=== PATIENT | female | born 1970 | race Caucasian/White ===

== ENCOUNTER 2022-01-17 09:44 | Outpatient (REF) | payer OTHER, SELFPAY | END 2022-01-17 09:45 | disposition home or self-care (01) | LOC: HO.WFDLDS 09:44 | PROVIDERS: Visit Provider Hospitalist | DX: E03.9 Hypothyroidism, unspecified (principal) | CPT/HCPCS: 36415; 84443 ==

== ENCOUNTER 2022-06-19 07:18 | Outpatient (REF) | payer OTHER, SELFPAY ==
[2022-06-19 12:26] LABS: TSH reflex Free T4 2.02 uIU/mL (0.32-4.0)
== END 2022-06-19 07:19 | disposition home or self-care (01) ==
LOC: HO.WFDLDS 07:18
PROVIDERS: Visit Provider Hospitalist
DX: E03.9 Hypothyroidism, unspecified (principal)
CPT/HCPCS: 36415; 84443

== ENCOUNTER 2023-03-25 09:08 | Outpatient (AMB) | payer OTHER, SELFPAY ==
[2023-03-25 09:15] VITALS: BP 128/84; PULSE 78; RESP 13; TEMP 36.3; O2SAT 99; BMI 33.7
--- NOTE | 2023-03-25 09:15 | MHC.PC.OV ---
Vital Signs 03/25/23 09:15 Height 5 ft 2.5 in Weight 187 lb 2 oz BMI 33.7 BP 128/84 Blood Pressure Location Rt brachial Position Sitting Respiration 13 Pulse 78 Pulse Source Pulse Oximeter Temp 97.3 F Temp Source Temporal Artery Scan Pulse Oximetry (%) 99 Oxygen Delivery Method Room Air Intake Visit Reasons: trans care from [facility] Intake Note: Patient would like a script sent in for sumatriptan. Director Food And Beverage Required: No Accompanied by: Self / Same As Patient Allergies No Known Allergies Allergy (Verified 03/25/23 09:32) Medication List - Last Reconciled 03/25/23 by Tone Carrillo CNP amlodipine 2.5 mg PO DAILY 90 days levothyroxine 112 mcg PO DAILY losartan-hydrochlorothiazide 100-25 mg 1 tab PO DAILY 90 days sumatriptan succinate 100 mg PO Q2-4H PRN Tobacco use date assessed: 03/25/23 Dental Screening Dental Screen Date: 03/25/23 Did you have a dental visit in the last 12 months?: Yes Did you have a dental problem in the last 6 months where you did not have access to dental care?: No Was dental information given to patient?: Patient has dentist HPI HPI Comments History of Present Illness Details 52-year-old female presents for transfer of care Her former PCP is CHRIS who is no longer with the practice. Her last office visit was in June 2022. She has not had routine blood work done in a while She has history of hypertension, hypothyroidism, and migraines She admits to taking her medications as prescribed without adverse reactions She monitors her BP daily in the morning and averages between 104-105/75-77 She notes that she exercise routinely and makes healthy dietary choices; she is a vegetarian. She had weight gain related to menopause discussion with her pad machine offbearer and may consider HRT She notes she has not had a colonoscopy She states that her last pap smear test and mammogram was at [facility] 2 months: both normal She notes she was vaccinate for shingles She is up-to-date on the flu and covid-19 vaccines [facility] Medical History (Updated 03/25/23 @ 09:55 by Tone Carrillo CNP) delivery delivered Ectopic Hypothyroidism HTN, goal to be determined Surgical History No pertinent past surgical history Social History Housing: House Patient Tobacco Use Status: Never used Tobacco e-Cigarette/Vaping Use: Never Used service: No Current occupational status: employed 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 1. Little interest or pleasure in doing things: not at all 2. Feeling down, depressed, or hopeless: not at all 3. Trouble falling or staying asleep, or sleeping too much: several days 4. Feeling tired or having little energy: several days 5. Poor appetite or overeating: not at all 6. Feeling bad about yourself - or that you are a failure or have let yourself or your family down: not at all 7. Trouble concentrating on things, such as reading the newspaper or watching television: not at all 8. Moving or speaking so slowly that other people could have noticed. Or the opposite - being so fidgety or restless that you have been moving around a lot more than usual: not at all 9. Thoughts that you would be better off or of hurting yourself in some way: not at all Total score: 2 Depression Screening Interpretation: Negative Depression Screening Done: Yes 89065 - PHQ-9 Billing: Yes Source: Developed by Drs. Lamberto Kelly, Ramya Jaimes, Law Coleman and colleagues, with an educational salvador from [employer]. Thrive Questionnaire Date Thrive assessed: 03/25/23 I am a: Patient What is your living situation today?: I have a steady place to live Within the past 12 months, did the food you bought not last and you didn't have the money to get more?: Never true Within the past 12 months, did you worry whether your food would run out before you got money to buy more?: Never true Do you have trouble paying for medicines?: No Do you have trouble getting transportation to medical appointments?: No Do you have trouble paying your heating and electricity bill?: No Do you have trouble taking care of your child, family member or friend?: No Do you have trouble with day-to-day activities such as bathing, preparing meals, shopping, managing finances, etc.?: No Are you currently unemployed and looking for a job?: No Are you interested in more education?: No Please select the resources that you would like help with: None Currently or been in a relationship where the following occur: no concerns reported AUDIT C Alcohol Use Questionnaire (AUDIT-C) 1. How often do you have a drink containing alcohol?: 2-4 times a month 2. How many drinks containing alcohol do you have on a typical day when you are drinking?: 1 or 2 3. How often do you have six or more drinks on one occasion?: Never Total Score: 2 TAMMY-7 AMB Questionnaire TAMMY-7 Date TAMMY - 7 assessed: 03/25/23 Feeling nervous, anxious, or on edge: 1 = Several days Not being able to stop or control worryin = Several days Worrying too much about different things: 1 = Several days Trouble relaxin = Several days Being so restless that it is hard to sit still: 0 = Not at all Becoming easily annoyed or irritable: 0 = Not at all Feeling afraid as if something awful might happen: 1 = Several days Total TAMMY-7 score (0-4 normal; 5-9 mild; 10-14 moderate; 15-21 severe): 5 Source: Developed by Drs. Lamberto Kelly, Ramya Jaimes, Law Coleman and colleagues, with an educational salvador from [employer]. TAMMY-7 Assessment Billing TAMMY-7 Assessment Tool: TAMMY-7 Assessment 99514 Review of Systems Const Details: Denies chills, Denies fatigue, Denies fever(s), Denies headache(s) and Denies weakness HEENT Denies change in vision, Denies dizziness, Denies headache(s), Denies hearing loss, Denies nasal congestion, Denies sinus pain, Denies sinus pressure and Denies sore throat Card Denies chest pain, Denies lightheadedness, Denies dyspnea and Denies other (palpitations) Resp Denies cough, Denies dyspnea and Denies wheezing GI Denies abdominal pain, Denies melena, Denies hematochezia, Denies change in bowel habits, Denies dyspepsia and Denies nausea Denies hematuria and Denies dysuria Musc Denies abnormal gait, Denies myalgias, Denies arthralgias, Denies numbness and Denies tingling Skin/Breast Denies rash, Denies unusual bruising and Denies wounds Neuro Denies abnormal gait, Denies dizziness, Denies headache(s), Denies memory loss, Denies numbness, Denies Sensory deficit (Neuro), Denies tingling and Denies weakness Psych Denies anxiety, Denies depression and Denies memory loss Endo Denies cold intolerance, Denies fatigue, Denies heat intolerance, Denies polydipsia and Denies polyuria Jesse/Lymph Denies easy bleeding and Denies easy bruising Aller/Immun Denies wheezing Physical exam (Primary Care) Vital Signs: Last Vital Signs Temp 97.3 F 03/25/23 09:15 Pulse 78 03/25/23 09:15 Resp 13 03/25/23 09:15 BP 128/84 03/25/23 09:15 Pulse Ox 99 03/25/23 09:15 Oxygen Delivery Method Room Air 03/25/23 09:15 BMI result Body Mass Index 33.7 Tobacco/Smoking Status: Tobacco use Status Tobacco use date assessed 03/25/23 03/25/23 09:27 Patient Tobacco Use Status Never used Tobacco 03/25/23 09:27 e-Cigarette/Vaping Use Never Used 03/25/23 09:27 PHQ-9: PHQ-9 Score PHQ-9: Total score 2 03/25/23 09:27 Depression Screening Interpretation: Negative Thrive Assessment: Date of Thrive Assessment Date Thrive assessed 03/25/23 03/25/23 09:27 Currently or been in a relationship where the following occur: no concerns reported Const Other: General: no acute distress, well developed, alert and awake Nutritional Appearance: well nourished Orientation/consciousness: patient oriented x3 HENMT Head: Yes normocephalic and Yes atraumatic Ears: hearing grossly normal bilaterally. Impacted cerumen of both ears, occluding the TMs General nose exam: Normal external nose present and Normal nares present Mouth: Normal oral and palatal mucosa present and moist mucous membranes Teeth and gingiva: dentition normal Throat: Yes oropharynx normal Eyes Pupils: Equal, round and reactive pupils present and Pupil accommodation reflex normal EOM: EOMs intact bilaterally Neck Neck: Yes normal visual inspection, Yes no lymphadenopathy and Yes trachea midline Thyroid: Thyroid normal Carotids: no bruits Lymphatic: no lymphadenopathy noted Chest Chest palpation & inspection: normal inspection of the chest Resp Effort & Inspection: normal respiratory effort Auscultation: clear to auscultation bilaterally Cardio Rate: regular rate Rhythm: regular rhythm Heart sounds: S1 normal heart sound present, S2 normal heart sound present, no gallops, no murmurs and no rubs Bruits: no abdominal aortic bruits and no carotid bruits GI Palpation (GI): No Abdominal aortic bruit present, Soft to palpation, nontender, No hepatosplenomegaly present and No Rebound tenderness present Auscultation: normal bowel sounds General: Yes no CVA tenderness Back/Spine/Pelvis Back: no CVA tenderness Cervical Spine: cervical ROM normal and No Cervical spine tenderness Thoracic/Lumbar Spine: thoraco-lumbar ROM normal, No pain with thoraco-lumbar ROM, No thoracic spinal tenderness and No lumbar spinal tenderness Skin General: warm and dry. Normal skin color. Normal skin turgor Lesions: no lesions Rashes: no rashes Trauma: no lacerations or abrasions Wounds: no wounds Nails: normal Neuro General: patient oriented x3, gait normal and CN's II-XI intact bilaterally Cranial nerves: Yes Equal, round and reactive pupils present Cognition (Neuro): normal cognition Gait exam (Neuro): Normal gait present Motor exam (neuro): 5/5 motor strength present throughout Sensory Exam: No Sensory deficit (Neuro) Deep tendon reflexes (DTR's): Right patellar reflex intensity grade: 2+ and Left patellar reflex intensity grade: 2+ Extrem General: Yes normal to inspection, No edema and No calf tenderness Psych Appearance: grossly normal Affect: normal affect Attitude: cooperative Thought process: Normal thought process present Assessment and Plan Assessment & Plan (1) Normal physical examination, routine: Code(s): Z00.00 - Encounter for general adult medical examination without abnormal findings Plan: No significant physical restrictions or limitations noted She is been fasting for over 10 hours and will get blood work done today Continue current treatment regimen Follow-up for a telehealth visit in 2-3 weeks for labs review Return sooner with symptoms or concerns Verbalized understanding and agreed with treatment plan (2) Essential hypertension: Code(s): I10 - Essential (primary) hypertension Plan: Blood pressure is 120/84, within goal of less than 140/90 Continue current treatment regimen Low-sodium diet encouraged Continue to monitor home blood pressure and reports readings persistently above 140/90 Will continue to monitor Verbalized understanding and agreed with treatment plan (3) Hypothyroidism: Code(s): E03.9 - Hypothyroidism, unspecified Plan: She has not had blood work done in a while Will check TSH/T4 level and make changes as needed Continue to take levothyroxine as prescribed Verbalized understanding and agreed with treatment plan (4) Impacted cerumen of both ears: Code(s): H61.23 - Impacted cerumen, bilateral Plan: Impacted cerumen of both ears, occluding the TMs No hearing impairment or overt infection May follow-up for ear irrigation as needed Verbalized understanding and agreed with the plan (5) Colon cancer screening: Code(s): Z12.11 - Encounter for screening for malignant neoplasm of colon Plan: She notes she is never had colonoscopy [place] [facility] [place] (6) Obesity (BMI 30-39.9): Code(s): E66.9 - Obesity, unspecified Plan: Reports routine exercise and healthy dietary changes Routine exercise and healthy diet encouraged She follow-up with gynecology regarding hormone replacement therapy Return with symptoms or concerns Verbalized understanding and agreed with treatment plan Orders: Orders Complete Blood Count Auto Diff Today Z00.00 - Encounter for general adult medical examination without abnormal findings Lipid Panel Today Z00.00 - Encounter for general adult medical examination without abnormal findings TSH reflex Free T4 Today Z00.00 - Encounter for general adult medical examination without abnormal findings Comprehensive [place]. Panel Fast Today Z00.00 - Encounter for general adult medical examination without abnormal findings UA CC w/rflx Micro + Cult Today Z00.00 - Encounter for general adult medical examination without abnormal findings Referrals Gastroenterology Referral Z12.11 - Encounter for screening for malignant neoplasm of colon Medications: New sumatriptan succinate do not exceed 2 doses per 24 hrs 100 mg PO Q2-4H PRN 20 tabs 0RF migraine headache Refilled losartan-hydrochlorothiazide 100-25 mg 1 tab PO DAILY 90 tabs 1RF 90 days I10 - Essential (primary) hypertension amlodipine 2.5 mg PO DAILY 90 tabs 1RF 90 days I10 - Essential (primary) hypertension levothyroxine 112 mcg PO DAILY 90 tabs 3RF E03.9 - Hypothyroidism, unspecified Coding Level of Care Code Est Pt Prev Care 40-64y(68774) Diagnoses Normal physical examination, routine Z00.00 Essential hypertension I10 Hypothyroidism E03.9 Impacted cerumen of both ears H61.23 Colon cancer screening Z12.11 Obesity (BMI 30-39.9) E66.9 Additional Codes TAMMY-7 Assessment Billing - TAMMY-7 Assessment Tool: TAMMY-7 Assessment [id number] ([id number])
== END 2023-03-25 09:58 | disposition home or self-care (01) ==
PROVIDERS: PCP Hospitalist; Visit Provider Nurse Practitioner Family
DX: Z00.00 Encounter for general adult medical examination without abnormal findings (principal); I10 Essential (primary) hypertension; E66.9 Obesity, unspecified; Z68.33 Body mass index [BMI] 33.0-33.9, adult; E03.9 Hypothyroidism, unspecified; H61.23 Impacted cerumen, bilateral
CPT/HCPCS: 99396

== ENCOUNTER 2023-03-25 09:58 | Outpatient (REF) | payer OTHER, SELFPAY ==
[2023-03-25 12:01] LABS: Alanine Aminotransferase 15 U/L (0-31); Albumin Level 4.5 g/dL (3.5-5.0); Alkaline Phosphatase 67 U/L (39-117); Anion Gap 13 (12-20); Aspartate Amino Transferase 19 U/L (5-31); Bilirubin Total 0.7 mg/dL (0.0-1.0); Blood Urea Nitrogen 19 mg/dL (9-16); Calcium 9.9 mg/dL (8.4-10.2); Carbon Dioxide 27 mmol/L (22-29); Chloride 105 mmol/L (96-108); Cholesterol 216 mg/dL (<200); Estimated Glomerular Filt Rate > 60; Glucose Fasting 99 mg/dL (60-99); HDL Cholesterol 64 mg/dL (>40); LDL Cholesterol Calculated 135 mg/dL (<100); Potassium 4.3 mmol/L (3.3-5.1); Sodium 141 mmol/L (135-145); TSH reflex Free T4 3.12 uIU/mL (0.32-4.0); Total Protein 7.7 g/dL (6.5-8.0); Triglycerides 89 mg/dL (<150)
== END 2023-03-25 09:59 | disposition home or self-care (01) ==
LOC: HO.WFDLDS 09:58
PROVIDERS: Visit Provider Nurse Practitioner Family
DX: Z00.00 Encounter for general adult medical examination without abnormal findings (principal)
CPT/HCPCS: 36415; 80053; 80061; 84443; 85025

== ENCOUNTER 2023-06-25 14:17 | Outpatient (AMB) | payer OTHER, SELFPAY ==
--- NOTE | 2023-06-25 14:29 | A.OFFVIS_ITS ---
Intake Vital Signs 06/25/23 14:33 Height 5 ft 2.5 in Weight 176 lb 5.917 oz BMI 31.7 BP 120/58 L Blood Pressure Location Lt brachial Position Sitting Pulse 104 H Intake Visit Reasons: Colonoscopy screening Intake Note: Crystal presents in the office as a colonoscopy screening. CC: She states that she has never had a colonoscopy because it got cancelled during COVID. no concerns. C Python Developer Required: No Allergies No Known Allergies Allergy (Verified 06/25/23 14:33) HPI Colonoscopy screening HPI Details 53 year old? female with past medical hi story of hypercholesteremia, obesity, hypertension, hypothyroidism is here today for pre colonoscopy screening.? Patient was sent to us by her PCP.? This is her first colonoscopy screening.? Patient denies any gastrointestinal symptoms in the past or at present.? Denies any personal or family history of gastrointestinal disease, colon polyps, or cancer.? Denies history of difficulty with sedation or anesthesia in the past.? Negative for history of sleep apnea.? Denies any history of cardiac, renal, pulmonary, or hepatic disease.?? No history of infectious? diseases like hepatitis A, B, C, HIV or tuberculosis.? Patient is not on any anticoagulation therapy. 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 Cognitive needs: No Hearing needs: No Vision needs: No Review of Systems Const Denies weight gain and Denies weight loss ENT Reports no additional complaints, Denies dysphagia and Denies odynophagia Card Reports no additional complaints Resp Reports no additional complaints GI Denies abdominal pain, Denies belching, Denies melena, Denies bloating, Denies change in bowel habits, Denies dysphagia, Denies excessive flatus, Denies dyspepsia, Denies heartburn, Denies diarrhea, Denies loose stools, Denies nausea, Denies odynophagia and Denies vomiting Musc Reports no additional complaints Neuro Reports no additional complaints Psych Reports no additional complaints Endo Reports no additional complaints Physical Exam Vital Signs: Last Vital Signs Pulse 104 H 06/25/23 14:33 BP 120/58 L 06/25/23 14:33 BMI result Body Mass Index 31.7 Const General: healthy appearing and no acute distress Nutritional Appearance: obese Orientation/consciousness: patient oriented x3 Resp Effort & Inspection: normal respiratory effort, able to speak in complete sentences, no tracheal deviation and symmetric chest movement Auscultation: clear to auscultation bilaterally Cardio Rate: regular rate GI Inspection: Yes normal to inspection, No distended and Yes obesity Palpation (GI): Soft to palpation, not firm, nontender and No hepatosplenomegaly present Auscultation: normal bowel sounds General: Yes no CVA tenderness Back/Spine/Pelvis Back: no CVA tenderness Skin General skin exam: elasticity normal, turgor normal and dry skin Neuro General: patient oriented x3 Psych Appearance: grossly normal Mental Status: mental status grossly normal Assessment & Plan Assessment & Plan (1) Colon cancer screening: Code(s): Z12.11 - Encounter for screening for malignant neoplasm of colon Plan Patient denies any GI, cardiac or respiratory symptoms. ?Denies any issues with anesthesia in the past.? Denies any history of sleep apnea.? No history infectious diseases in the past or present.? Not on any anticoagulation therapy.? No family or personal history of colon cancer or polyps.? Patient denies melena, hematochezia, unintentional weight loss or ribbon like stools.? Discussed at length the pre-procedure,? prep, diet & medications as well as what to expect prior, during and after the procedure.?? Stressed the importance of good bowel prep. ?Recommended the use of Vaseline or Calmoseptine OTC & baby wipes with bowel movements to promote comfort.? ?Patient verbalizes understanding and agrees to plan of care.? She was given the opportunity to ask questions and all questions answered.? We will see her after the procedure.? Medications: New bisacodyl (Dulcolax (bisacodyl)) take 4 tabs at noon the day before your colonoscopy 20 mg (4 x 5 mg) PO ONCE 1 day 4 tabs 0RF Z12.11 - Encounter for screening for malignant neoplasm of colon polyethylene glycol 3350 (Miralax) As directed by gastro[facility]ology department at [facility] 238 grams PO ONCE 238 grams 0RF Z12.11 - Encounter for screening for malignant neoplasm of colon Coding Level of Care Code New Pt Level 3 (32444) Diagnoses Colon cancer screening Z12.11 Time Spent (min) 40 Comment 30 minutes spent with patient and additional 10 minutes spent reviewing her records
[2023-06-25 14:33] VITALS: BP 120/58; PULSE 104; BMI 31.7
== END 2023-06-25 16:21 | disposition home or self-care (01) ==
PROVIDERS: Visit Provider Nurse Practitioner Family
DX: Z01.818 Encounter for other preprocedural examination (principal); Z12.11 Encounter for screening for malignant neoplasm of colon
CPT/HCPCS: S0285

== ENCOUNTER → 2023-06-25 14:17 | Outpatient (BNVA) | payer OTHER, SELFPAY | PROVIDERS: Visit Provider Nurse Practitioner Family ==

== ENCOUNTER 2023-08-02 08:26 | Outpatient (REF) | payer OTHER, SELFPAY ==
[2023-08-02 12:32] LABS: Cholesterol 177 mg/dL (<200); HDL Cholesterol 61 mg/dL (>40); LDL Cholesterol Calculated 104 mg/dL (<100); Triglycerides 64 mg/dL (<150)
== END 2023-08-02 08:27 | disposition home or self-care (01) ==
LOC: HO.WFDLDS 08:26
PROVIDERS: Visit Provider Nurse Practitioner Family
DX: E78.00 Pure hypercholesterolemia, unspecified (principal)
CPT/HCPCS: 36415; 80061

== ENCOUNTER 2023-08-06 11:32 | Outpatient (AMB) | payer OTHER, SELFPAY ==
[2023-08-06 11:36] VITALS: BP 128/74; PULSE 97; RESP 13; TEMP 36.2; O2SAT 99; BMI 32.1
--- NOTE | 2023-08-06 11:36 | MHC.PC.OV ---
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 Accompanied by: Self / Same As Patient Allergies No Known Allergies Allergy (Verified 08/06/23 11:50) Medication List - Last Reconciled 08/06/23 by Tone Carrillo CNP amlodipine 2.5 mg PO DAILY 90 days bisacodyl (Dulcolax (bisacodyl)) 20 mg (4 x 5 mg) PO ONCE 1 day fluticasone propionate 50 mcg/actuation 1 spray intranasal DAILY levothyroxine 112 mcg PO DAILY losartan-hydrochlorothiazide 100-25 mg 1 tab PO DAILY 90 days polyethylene glycol 3350 (Miralax) 238 grams PO ONCE sumatriptan succinate 100 mg PO Q2-4H PRN Tobacco use date assessed: 03/25/23 Dental Screening Dental Screen Date: 03/25/23 HPI HPI Comments History of Present Illness Details Patient presents for hypertension and hyperlipidemia follow-up She admits to taking her medications as prescribed without adverse reactions She offers no complaints and denies acute symptoms at this time [facility] Medical History delivery delivered Ectopic Hypothyroidism HTN, goal to be determined Surgical History No pertinent past surgical history Social History Housing: House Patient Tobacco Use Status: Never used Tobacco e-Cigarette/Vaping Use: Never Used service: No 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 Lamberto Kelly, Ramya Jaimes, Law Cloeman and colleagues, with an educational salvador from [employer]. Review of Systems Const Details: Const Denies chills, Denies fatigue, Denies fever(s), Denies headache(s) and Denies weakness ENT Denies dizziness and Denies headache(s) Card Denies chest pain, Denies lightheadedness, Denies dyspnea and Denies other (Palpitations) Resp Denies cough, Denies dyspnea, Denies wheezing and Denies other ( shortness of breath) GI Denies abdominal pain, Denies melena, Denies hematochezia, Denies change in bowel habits, Denies dyspepsia and Denies nausea Denies hematuria and Denies dysuria Musc Denies abnormal gait, Denies myalgias, Denies arthralgias, Denies numbness and Denies tingling Skin/Breast Denies rash, Denies unusual bruising and Denies wounds Neuro Denies abnormal gait, Denies dizziness, Denies headache(s), Denies memory loss, Denies numbness, Denies Sensory deficit (Neuro), Denies tingling and Denies weakness Psych Denies anxiety, Denies depression, Denies memory loss Endo Denies cold intolerance, Denies fatigue, Denies heat intolerance, Denies polydipsia and Denies polyuria Aller/Immun Denies wheezing Physical exam (Primary Care) Vital Signs: Last Vital Signs Temp 97.1 F 08/06/23 11:36 Pulse 97 08/06/23 11:36 Resp 13 08/06/23 11:36 BP 128/74 08/06/23 11:36 Pulse Ox 99 08/06/23 11:36 Oxygen Delivery Method Room Air 08/06/23 11:36 BMI result Body Mass Index 32.1 Tobacco/Smoking Status: Tobacco use Status Tobacco use date assessed 03/25/23 08/06/23 11:42 Patient Tobacco Use Status Never used Tobacco 08/06/23 11:42 e-Cigarette/Vaping Use Never Used 08/06/23 11:42 Thrive Assessment: Date of Thrive Assessment Date Thrive assessed 03/25/23 08/06/23 11:42 Const Other: General: no acute distress and well developed Nutritional Appearance: well nourished Orientation/consciousness: patient oriented x3 HENMT Head: Yes normocephalic and Yes atraumatic Eyes General: appearance normal, both eyes and all related structures Pupils: Equal, round and reactive pupils present EOM: EOMs intact bilaterally Resp Effort & Inspection: normal respiratory effort Auscultation: clear to auscultation bilaterally Cardio Rate: regular rate Rhythm: regular rhythm Heart sounds: S1 normal heart sound present, S2 normal heart sound present, no gallops, no murmurs and no rubs GI Palpation (GI): No Abdominal aortic bruit present, Soft to palpation, nontender, No hepatosplenomegaly present and No Rebound tenderness present Auscultation: normal bowel sounds General: Yes no CVA tenderness Back/Spine/Pelvis Back: no CVA tenderness Cervical Spine: cervical ROM normal and No Cervical spine tenderness Thoracic/Lumbar Spine: thoraco-lumbar ROM normal, No pain with thoraco-lumbar ROM, No thoracic spinal tenderness and No lumbar spinal tenderness Extrem General: Yes normal to inspection, No edema and No calf tenderness Skin General: warm and dry. Normal skin color. Normal skin turgor Neuro General: patient oriented x3, gait normal and no focal neuro deficit Cranial nerves: Yes Equal, round and reactive pupils present Cognition (Neuro): normal cognition Gait exam (Neuro): Normal gait present Sensory Exam: No Sensory deficit (Neuro) Psych Appearance: grossly normal Affect: normal affect Attitude: cooperative Thought process: Normal thought process present Assessment and Plan Assessment & Plan (1) Essential hypertension: Code(s): I10 - Essential (primary) hypertension Plan: Blood pressure is 128/74, within goal of less than 140/90 Continue to take amlodipine and losartan-hydrochlorothiazide as prescribed Low-sodium diet and routine exercise encouraged Follow-up in 4 months or return sooner with worsening or new symptoms Verbalized understanding and agreed with treatment plan (2) Hypercholesterolemia: Code(s): E78.00 - Pure hypercholesterolemia, unspecified Plan: Recent total cholesterol and LDL levels are normal, 177 and 104 respectively Advised to limit foods high in saturated fat and avoid foods high in trans fat Routine exercise encouraged Will recheck lipid panel level in 4 months Verbalized understanding and agreed with treatment plan Orders: Orders Lipid Panel 4 Months E78.00 - Pure hypercholesterolemia, unspecified Coding Level of Care Code Est Pt Level 4 (15533) Complex EM visit Add On G2211 Diagnoses Essential hypertension I10 Hypercholesterolemia E78.00
== END 2023-08-06 12:02 | disposition home or self-care (01) ==
PROVIDERS: Visit Provider Nurse Practitioner Family
DX: I10 Essential (primary) hypertension (principal); E78.00 Pure hypercholesterolemia, unspecified
CPT/HCPCS: 99214; G2211

== ENCOUNTER 2023-11-07 09:15 | Day surgery (SDC) | payer OTHER, SELFPAY ==
[2023-11-05 14:50] VITALS: BMI 31.7
[2023-11-07 09:56] VITALS: BMI 32.6
[2023-11-07 09:58] VITALS: BP 129/79; PULSE 88; RESP 16; TEMP 36.7; O2SAT 100
--- NOTE | 2023-11-07 10:22 | HO.ANESPROP2 ---
[facility]LY [facility], LATER [facility] Active Problems Active Problems: All Active Problems Hypercholesterolemia (Acute) Obesity (BMI 30-39.9) (Acute) Colon cancer screening (Acute) Impacted cerumen of both ears (Acute) Essential hypertension (Acute) Normal physical examination, routine (Acute) Laboratory tests ordered as part of a complete physical exam (CPE) (Acute) HTN, goal below 130/80 (Acute) Normal physical exam (Acute) Strep throat (Acute) History of strep sore throat (Acute) Hypothyroidism (Acute) Past Medical History Medical History Ectopic Elevated cholesterol HTN (hypertension) Hypothyroidism Surgical History Surgical History Hx of section History of Problems with Anesthesia: No Social History Social History Housing: House Patient Tobacco Use Status: Never used Tobacco e-Cigarette/Vaping Use: Never Used Use of substances other than those prescribed or required for medical reasons: No Have you been hit, kicked, punched, or otherwise hurt by someone within the past year? 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 needs: No Hearing needs: No Vision needs: No Meds Allergies Allergy/AdvReac Type Severity Reaction Status Date / Time No Known Allergies Allergy Verified 08/06/23 11:50 Active Medications: Current Medications Lactated Ringer's (Lr) 1,000 mls @ 100 mls/hr IVCONT .Q10H HUMA Home Medications ?Medication ?Instructions ?Recorded ?Confirmed ?Last Taken ?Type fluticasone propionate 50 1 spray intranasal DAILY 06/25/23 11/05/23 Unknown History mcg/actuation nasal spray,suspension Exam Height,Weight and Vital Signs: Height 5 ft 2.5 in Weight 82.282 kg Last Vital Signs Temp 98.1 F 11/07/23 09:58 Pulse 88 11/07/23 09:58 Resp 16 11/07/23 09:58 BP 129/79 11/07/23 09:58 Pulse Ox 100 11/07/23 09:58 O2 Del Method Room Air 11/07/23 09:58 Airway Mallampati Class: II TM Dist: >3cm Neck ROM: Full Loose/Missing/Broken Teeth: No Heart: RRR Lungs: CTA Assessment and Plan Assessment Anesthesia Assessment: Anesthesia Plan Discussed Final Anesthetic Review History of Problems with Anesthesia: No NPO: Yes ASA Class: II Final Preanesthetic Review: Meds/Allgs Chart Reviewed, Consent Obtained/Reviewed and Anes Risks/Benef Reviewed Patient Risk: Low Procedure Risk: Low Anesthetic Plan Anesthetic Plan: MAC: Disposition: Standard PACU
[2023-11-07] MEDS: Lactated Ringers 1,000 ML 100 ML IVCONT (10:42)
--- NOTE | 2023-11-07 10:46 | MHC.SHP ---
Pre-Procedural Eval Section A - 24 Hr Update-Section A only Date of Service: 11/07/23 Section B - Complete if H&P > 30 days Chief Complaint: screening Relevant Family History (Specify if Yes): No Relevant Social History: None Present Medications: see Short Stay Collaborative assessment Medical History: Significant History ( delivery delivered Ectopic Hypothyroidism HTN, goal to be determined) History of Previous Operations: Relevant previous surgery/procedure and date(s) (c section ) Allergies: Allergies Allergy/AdvReac Type Severity Reaction Status Date / Time No Known Allergies Allergy Verified 08/06/23 11:50 Review of Systems Sugical H&P ROS: Negative: Constitution, Cardiovascular, Respiratory, Neurological, Psychiatric, Hem-Onc, Allergic/Immunologic, Gastrointestinal, Genitourinary, Musculoskeletal, Integumentary, Endocrine and Eyes/Ears/Nose/Throat Exam Surgical H&P Exam: Normal: HEENT, Normal: Heart, Normal: Lungs, Normal: Extremities, Normal: Abdomen, Normal: Skin and Normal: Neurological Plan Diagnosis/Plan: Unchanged I have reviewed the history and physical and performed a pertinent physical examination on my patient. No changes have occurred unless specified. Time Spent With Patient Time: Total time managing care of this patient today ____ minutes.
--- NOTE | 2023-11-07 11:10 | HO.OPN-COLON ---
Colonoscopy Operative Note Operative Note Date of Service: 11/07/23 Narrative: Operative Information Procedure Description: Colonoscopy Indication: screening Anesthesia: MAC COLONOSCOPY Instrument: Olympus variable stiffness pediatric scope 190L Colonoscopy Monitoring: Vital signs and clinical assessment, continuous EKG monitoring, Pulse oximetry, Carbon Dioxide monitoring and blood pressure monitoring were done throughout the procedure. Colon withdrawal time was 8 minutes. Procedure: The patient was placed in the left lateral decubitis position and pre-procedure medications were administered. After a digital rectal examination of the ano-rectum, the video colonoscope was inserted into the rectum and advanced through the colon to the cecum/TI. The colonoscope was slowly withdrawn in a retrograde panoramic fashion and the colon mucosa was carefully examined including a retroflexed view of the rectum. Findings and interventions are described below. Procedure Difficulty: easy Findings: Terminal Ileum-normal Cecum:normal Ascending Colon: normal Transverse Colon -normal Descending Colon:normal Sigmoid Colon: normal Rectum: Retroflexion with small internal hemorrhoids seen, grade I, prominent lymphoid follicles, bx taken Anorectum - normal Intervention: cold forceps biopsy Colon preparation: [place] Bowel Preparation Scale Right colon; 2 Transverse colon: 2 Left colon; 2 (0 = Unprepared colon segment with mucosa not seen due to solid stool that cannot be cleared. 1 = Portion of mucosa of the colon segment seen, but other areas of the colon segment not well seen due to staining, residual stool and/or opaque liquid. 2 = Minor amount of residual staining, small fragments of stool and/or opaque liquid, but mucosa of colon segment seen well. 3 = Entire mucosa of colon segment seen well with no residual staining, small fragments of stool or opaque liquid) Impression and Post Procedure Diagnosis: internal hemorrhoids Plan: High fiber diet leaflet Avoid straining at stool, epsom salts and sitz bath, anusol supps or cream Repeat Colonoscopy in 10 years or earlier if clinically indicated Above findings were reviewed with the patient and relevant handouts were provided if indicated.
[2023-11-07 11:15] VITALS: BP 97/47; PULSE 85; RESP 18; TEMP 36.8; O2SAT 100
[2023-11-07 11:30] VITALS: BP 116/65; PULSE 80; RESP 16; TEMP 36.8; O2SAT 99
== END 2023-11-07 12:19 | disposition home or self-care (01) ==
PROVIDERS: PCP Nurse Practitioner Family; Visit Provider Internal Medicine Gastroenterology
PROC: 0DJD8ZZ Inspection of Lower Intestinal Tract, Via Natural or Artificial Opening Endoscopic (ICD-10-PCS; CPT 45378; principal; 2023-11-07 12:10)
DX: Z12.11 Encounter for screening for malignant neoplasm of colon (principal); K64.0 First degree hemorrhoids; I10 Essential (primary) hypertension; E78.00 Pure hypercholesterolemia, unspecified; E03.9 Hypothyroidism, unspecified; E66.9 Obesity, unspecified; Z68.31 Body mass index [BMI] 31.0-31.9, adult
CPT/HCPCS: 45380; 88305; J2704

== ENCOUNTER → 2023-11-07 09:15 | Outpatient (BNV) | payer OTHER, SELFPAY | PROVIDERS: PCP Nurse Practitioner Family; Visit Provider Internal Medicine Gastroenterology | DX: Z12.11 Encounter for screening for malignant neoplasm of colon (principal); D12.8 Benign neoplasm of rectum; K64.0 First degree hemorrhoids | CPT/HCPCS: 45380 ==

== ENCOUNTER 2023-12-04 14:46 | Outpatient (AMB) | payer OTHER, SELFPAY ==
[2023-12-04 14:51] VITALS: BP 140/70; PULSE 90; O2SAT 99; BMI 32.2
--- NOTE | 2023-12-04 14:51 | MHC.OFFVIS ---
Vital Signs 12/04/23 14:51 Height 5 ft 3 in Weight 181 lb 10.574 oz BMI 32.2 BP 140/70 H Blood Pressure Location Rt brachial Position Sitting Pulse 90 Pulse Source Pulse Oximeter Pulse Oximetry (%) 99 Oxygen Delivery Method Room Air Intake Visit Reasons: S/P Gardner; Dr. Zeng Intake Note: Crystal presents in office today for a scheduled s/p FUV. CC; Pt denies any complications or new concerns post op. Pt is here to discuss findings of the procedure. 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 Zeng: Details: LAST VISIT: Colon cancer screening Plan Patient denies any GI, cardiac or respiratory symptoms. ?Denies any issues with anesthesia in the past.? Denies any history of sleep apnea.? No history infectious diseases in the past or present.? Not on any anticoagulation therapy.? No family or personal history of colon cancer or polyps.? Patient denies melena, hematochezia, unintentional weight loss or ribbon like stools.? Discussed at length the pre-procedure,? prep, diet & medications as well as what to expect prior, during and after the procedure.?? Stressed the importance of good bowel prep. ?Recommended the use of Vaseline or Calmoseptine OTC & baby wipes with bowel movements to promote comfort.? ?Patient verbalizes understanding and agrees to plan of care.? She was given the opportunity to ask questions and all questions answered.? We will see her after the procedure.? Medications New bisacodyl (Dulcolax (bisacodyl)) take 4 tabs at noon the day before your colonoscopy 20 mg (4 x 5 mg) PO ONCE 1 day 4 tabs 0RF Z12.11 polyethylene glycol 3350 (Miralax) As directed by gastroenterology department at [facility] 238 grams PO ONCE 238 grams 0RF Z12.11 COLONOSCOPY: Findings: Terminal Ileum-normal Cecum:normal Ascending Colon: normal Transverse Colon -normal Descending Colon:normal Sigmoid Colon: normal Rectum: Retroflexion with small internal hemorrhoids seen, grade I, prominent lymphoid follicles, bx taken Anorectum - normal Intervention: cold forceps biopsy Colon preparation: [place] Bowel Preparation Scale Right colon; 2 Transverse colon: 2 Left colon; 2 (0 = Unprepared colon segment with mucosa not seen due to solid stool that cannot be cleared. 1 = Portion of mucosa of the colon segment seen, but other areas of the colon segment not well seen due to staining, residual stool and/or opaque liquid. 2 = Minor amount of residual staining, small fragments of stool and/or opaque liquid, but mucosa of colon segment seen well. 3 = Entire mucosa of colon segment seen well with no residual staining, small fragments of stool or opaque liquid) Impression and Post Procedure Diagnosis: internal hemorrhoids Plan: High fiber diet leaflet Avoid straining at stool, epsom salts and sitz bath, anusol supps or cream Repeat Colonoscopy in 10 years or earlier if clinically indicated TODAY'S VISIT Patient is here today for follow-up and to discuss colonoscopy results. Patient denies any ill effects from the prep, anesthesia or procedure itself. Patient reports to be feeling well. Denies any melena, hematochezia. Patient had normal colonoscopy, internal hemorrhoids found. Patient reports that she has been feeling well. Denies any GI concerning symptoms. Denies any abdominal pain or discomfort. Denies any dyspepsia, dysphagia or odynophagia. [facility] Medical History Ectopic Elevated cholesterol HTN (hypertension) Hypothyroidism Surgical History Hx of section Social History Housing: House Patient Tobacco Use Status: Never used Tobacco e-Cigarette/Vaping Use: Never Used service: No Current occupational status: employed Current occupation: Cognitive needs: No Hearing needs: No Vision needs: No Review of Systems Const Denies weight gain and Denies weight loss ENT Reports no additional complaints, Denies dysphagia and Denies odynophagia Card Reports no additional complaints Resp Reports no additional complaints GI Denies abdominal pain, Denies belching, Denies melena, Denies bloating, Denies change in bowel habits, Denies dysphagia, Denies excessive flatus, Denies dyspepsia, Denies heartburn, Denies diarrhea, Denies loose stools, Denies nausea, Denies odynophagia and Denies vomiting Musc Reports no additional complaints Neuro Reports no additional complaints Psych Reports no additional complaints Endo Reports no additional complaints Physical Exam Vital Signs: Last Vital Signs Pulse 90 12/04/23 14:51 BP 140/70 H 12/04/23 14:51 Pulse Ox 99 12/04/23 14:51 Oxygen Delivery Method Room Air 12/04/23 14:51 BMI result Body Mass Index 32.2 Const General: healthy appearing and no acute distress Nutritional Appearance: obese Orientation/consciousness: patient oriented x3 Resp Effort & Inspection: normal respiratory effort, able to speak in complete sentences, no tracheal deviation and symmetric chest movement Auscultation: clear to auscultation bilaterally Cardio Rate: regular rate GI Inspection: Yes normal to inspection, No distended and Yes obesity Palpation (GI): Soft to palpation, not firm, nontender and No hepatosplenomegaly present Auscultation: normal bowel sounds General: Yes no CVA tenderness Back/Spine/Pelvis Back: no CVA tenderness Skin General skin exam: elasticity normal, turgor normal and dry skin Neuro General: patient oriented x3 Psych Appearance: grossly normal Mental Status: mental status grossly normal Assessment & Plan Assessment & Plan (1) Status post colonoscopy: Code(s): Z98.890 - Other specified postprocedural states Plan Asymptomatic colorectal screening in 10 years, sooner if clinically necessary. No family history of CRC. Patient will follow-up in our office on as needed basis. She is agreeable to this plan and verbalizes understanding of instructions. She was given the opportunity to ask questions and all questions answered. Thank you for allowing me to participate in her care Coding Level of Care Code Est Pt Level 3 (30017) Diagnoses Status post colonoscopy Z98.890 Time Spent (min) 25 Comment 15 minutes spent with patient and additional 10 minutes spent reviewing her records
== END 2023-12-04 15:36 | disposition home or self-care (01) ==
PROVIDERS: Visit Provider Nurse Practitioner Family
DX: Z98.890 Other specified postprocedural states (principal)
CPT/HCPCS: 99213

== ENCOUNTER → 2023-12-04 14:46 | Outpatient (BNVA) | payer OTHER, SELFPAY | PROVIDERS: Visit Provider Nurse Practitioner Family ==

== ENCOUNTER 2023-12-20 08:00 | Outpatient (REF) | payer OTHER, SELFPAY ==
[2023-12-20 13:06] LABS: Cholesterol 177 mg/dL (<200); HDL Cholesterol 58 mg/dL (>40); LDL Cholesterol Calculated 105 mg/dL (<100); Triglycerides 72 mg/dL (<150)
== END 2023-12-20 08:01 | disposition home or self-care (01) ==
LOC: HO.WFDLDS 08:00
PROVIDERS: Visit Provider Nurse Practitioner Family
DX: E78.00 Pure hypercholesterolemia, unspecified (principal)
CPT/HCPCS: 36415; 80061

== ENCOUNTER 2024-01-06 12:06 | Outpatient (AMB) | payer OTHER, SELFPAY ==
--- NOTE | 2024-01-06 12:03 | MHC.PC.OV ---
Intake Visit Reasons: f/u labs Intake Note: patient here for telehealth to follow up on labs [place] Required: No Allergies No Known Allergies Allergy (Verified 01/06/24 12:04) Tobacco use date assessed: 03/25/23 Dental Screening Dental Screen Date: 03/25/23 HPI HPI Comments History of Present Illness Details 53-year-old female presents for a telehealth visit for review recent blood work She admits to taking her medications as prescribed without adverse reactions She offers no complaints and denies acute symptoms at this time [facility] Medical History Ectopic Elevated cholesterol HTN (hypertension) Hypothyroidism Surgical History Hx of section Social History Housing: House Patient Tobacco Use Status: Never used Tobacco e-Cigarette/Vaping Use: Never Used service: No 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 Lamberto Kelly, Ramya Jaimes, Law Coleman and colleagues, with an educational salvador from [employer]. Review of Systems Const Details: Const Denies chills, Denies fatigue, Denies fever(s), Denies headache(s) and Denies weakness ENT Denies dizziness and Denies headache(s) Card Denies chest pain, Denies lightheadedness, Denies dyspnea and Denies other (Palpitations) Resp Denies cough, Denies dyspnea, Denies wheezing and Denies other ( shortness of breath) GI Denies abdominal pain, Denies melena, Denies hematochezia, Denies change in bowel habits, Denies dyspepsia and Denies nausea Denies hematuria and Denies dysuria Musc Denies abnormal gait, Denies myalgias, Denies arthralgias, Denies numbness and Denies tingling Skin/Breast Denies rash, Denies unusual bruising and Denies wounds Neuro Denies abnormal gait, Denies dizziness, Denies headache(s), Denies memory loss, Denies numbness, Denies Sensory deficit (Neuro), Denies tingling and Denies weakness Psych Denies anxiety, Denies depression, Denies memory loss Endo Denies cold intolerance, Denies fatigue, Denies heat intolerance, Denies polydipsia and Denies polyuria Aller/Immun Denies wheezing Physical exam (Primary Care) Tobacco/Smoking Status: Tobacco use Status Tobacco use date assessed 03/25/23 01/06/24 12:06 Patient Tobacco Use Status Never used Tobacco 01/06/24 12:06 e-Cigarette/Vaping Use Never Used 01/06/24 12:06 Thrive Assessment: Date of Thrive Assessment Date Thrive assessed 03/25/23 01/06/24 12:06 Const Other: Telehealth visit. No physical exam Telehealth Telehealth Telehealth Platform: Telephone Location of provider rendering services: practice address Location of patient: address on file Patient Identification confirmed using: Name, : Yes Telehealth method: voice only Patient verbally consented to treatment: Yes Patient verbally consented to billing insurance company: Yes Patient informed of any privacy concerns related to visit: Yes Coding Level of Care Code Tele Est Pt Level 3 (52025) Diagnoses Hypercholesterolemia E78.00 Essential hypertension I10 Time Spent (min) 10 Assessment & Plan Assessment & Plan (1) Hypercholesterolemia: Code(s): E78.00 - Pure hypercholesterolemia, unspecified Category: Medical Plan: Recent lipid panel level is normal Advised to limit foods high in saturated fat and avoid foods high in trans fat Routine exercise encouraged Follow-up in 3-4 months for an extended physical exam Advised to fast for 10-12 hours, may drink water only, and get blood work done a few days before next visit Verbalized understanding and agreed with the plan (2) Essential hypertension: Code(s): I10 - Essential (primary) hypertension Category: Medical Plan: She notes that she checks her blood pressure routinely and readings have been controlled. She would come to the office at a later date to have her blood pressure checked by the nurse Orders: Orders Lipid Panel 4 Months E78.00 - Pure hypercholesterolemia, unspecified TSH reflex Free T4 Today E03.9 - Hypothyroidism, unspecified
== END 2024-01-06 12:37 | disposition home or self-care (01) ==
LOC: HO.HMCFM 12:06
PROVIDERS: PCP Nurse Practitioner Family; Visit Provider Nurse Practitioner Family
DX: E78.00 Pure hypercholesterolemia, unspecified (principal); I10 Essential (primary) hypertension

== ENCOUNTER → 2024-01-06 12:06 | Outpatient (BNVA) | payer OTHER, SELFPAY | PROVIDERS: PCP Nurse Practitioner Family; Visit Provider Nurse Practitioner Family ==

== ENCOUNTER → 2024-01-24 14:11 | Outpatient (BNVA) | payer OTHER, SELFPAY | PROVIDERS: PCP Nurse Practitioner Family; Visit Provider Nurse Practitioner Family ==

== ENCOUNTER 2024-04-29 07:49 | Outpatient (REF) | payer OTHER, SELFPAY ==
--- OUTSIDE RECORDS SUMMARY | 2024-04-29 07:51 | XMS_ITS ---
Author Name [facility] Organization Unknown History of Medication Use Medication Directions Dispensed Refills Start Date End Date Stat us losartan-hydroCHLOROt hiazide (HYZAAR) 100-25 MG per tablet Take 1 tablet by mouth daily. 02/13/2023 active SUMAtriptan (IMITREX) 100 MG tablet PLEASE SEE ATTACHED FOR DETAILED DIRECTIONS 03/25/2023 active levothyroxine (SYNTHROID, LEVOTHROID) 112 MCG tablet Take 112 mcg by mouth daily. 04/15/2023 active guaiFENesin (MUCINEX) 600 MG 12 hr tablet Take 2 tablets (1,200 mg total) by mouth 2 (two) times a day as needed for congestion. 05/16/2023 active carbamide peroxide (DEBROX) 6.5 % otic solution Administer 5 drops into both ears 2 (two) times a day. 05/16/2023 05/21/2023 active Problems Problem Status Onset Date Problem Type Date of Resoluti on Source Bilateral impacted cerumen active EncounterDiagnosisAct CCT
--- OUTSIDE RECORDS SUMMARY | 2024-04-29 07:51 | XMS_ITS | Clinical Summary ---
Author Organization [facility] Address [address] [place] [address] Care Team Providers Care Lodge Sales Associate Name Role Phone Tone Carirllo NP Primary Care Provider [phone] Allergies No known active allergies Medications Medication Sig Dispensed Refills Start Date End Date Status amLODIPine (NORVASC) 2.5 MG tablet Take 2.5 mg by mouth daily. FOR 90 DAYS 04/18/2023 Active losartan-hydroCHLOR Othiazide (HYZAAR) 100-25 MG per tablet Take 1 tablet by mouth daily. 02/13/2023 Active levothyroxine (SYNTHROID, LEVOTHROID) 112 MCG tablet Take 112 mcg by mouth daily. 04/15/2023 Active SUMAtriptan (IMITREX) 100 MG tablet PLEASE SEE ATTACHED FOR DETAILED DIRECTIONS 03/25/2023 Active carbamide peroxide (DEBROX) 6.5 % otic solutionIndications :Bilateral impacted cerumen Administer 5 drops into both ears 2 (two) times a day. 15 mL 05/16/2023 Active fluticasone (FloNASE) 50 mcg/spray nasal sprayIndications:Ba cterial sinusitis 1 spray into each nostril daily. 1 each 05/16/2023 Active guaiFENesin (MUCINEX) 600 MG 12 hr tabletIndications:B acterial sinusitis Take 2 tablets (1,200 mg total) by mouth 2 (two) times a day as needed for congestion. 20 tablet 05/16/2023 Active Active Problems No known active problems Social History Tobacco Use Types Packs/Day Years Used Date Smoking Tobacco: Never Assessed Sex and Gender Information Value Date Recorded Sex Assigned at Not on file Gender Identity Not on file Sexual Orientation Not on file Last Filed Vital Signs Vital Sign Reading Time Taken Comments Blood Pressure 133/81 05/16/2023 10:16 AM EST Pulse 88 05/16/2023 10:16 AM EST Temperature 37.1 ??C (98.7 ??F) 05/16/2023 10:[address] Respiratory Rate 16 05/16/2023 10:16 AM EST Oxygen Saturation 100% 05/16/2023 10:16 AM EST Inhaled Oxygen Concentration - - Weight - - Height - - Body Mass Index - - Plan of Treatment Health Maintenance Due Date Last Done Comments Hepatitis C Virus Screening 1969 HIV Screening 1982 DTaP/Tdap/Td Vaccines (1 - Tdap) 1988 Hepatitis B Vaccines (1 of 3 - 19+ 3-dose series) 1988 Pap Smear (Ages 21-65) 1990 Mammogram 2009 Colonoscopy 2014 Pneumococcal Vaccines 50+ (1 of 1 - PCV) 05/26/2019 Zoster (Shingles) Vaccine (1 of 2) 05/26/2019 Influenza Vaccine 10/17/2023 COVID-19 Vaccine ( - 2023-2 5 season) 2023 Pneumococcal Vaccine: Pediat marla (0-5 Years) and At-Risk Patients (6 to 49 Years) Aged Out No longer eligible b ased on patient's age to complete this topic Care Teams Lodge Sales Associate Relationship Specialty Start Date End Date Tone Carrillo NP [address] [place] [address] PCP - General 05/16/23
[2024-04-29 11:47] LABS: Cholesterol 173 mg/dL (<200); HDL Cholesterol 59 mg/dL (>40); LDL Cholesterol Calculated 101 mg/dL (<100); Triglycerides 68 mg/dL (<150)
== END 2024-04-29 07:50 | disposition home or self-care (01) ==
LOC: HO.WFDLDS 07:49
PROVIDERS: Visit Provider Nurse Practitioner Family
DX: E78.00 Pure hypercholesterolemia, unspecified (principal)
CPT/HCPCS: 36415; 80061

== ENCOUNTER 2024-05-05 12:02 | Outpatient (AMB) | payer OTHER, SELFPAY ==
--- NOTE | 2024-05-05 12:04 | MHC.PC.OV ---
Vital Signs 05/05/24 12:09 05/05/24 12:45 Height 5 ft 3 in Weight 183 lb BMI 32.4 BP 112/54 L 114/70 Blood Pressure Location Rt brachial Lt brachial Position Sitting Sitting Respiration 16 Pulse 83 Pulse Source Pulse Oximeter Temp 97.6 F Temp Source Oral Intake Visit Reasons: cpe Intake Note: patient here for CPE Bulldozer Press Operator Required: No Is last menstrual period known: No Post menopausal: No Patient : No Allergies No Known Allergies Allergy (Verified 05/05/24 12:37) Medication List - Last Reconciled 05/05/24 by Tone Carrillo CNP amlodipine 2.5 mg PO DAILY 90 days fluticasone propionate 50 mcg/actuation 1 spray intranasal DAILY levothyroxine 112 mcg PO DAILY losartan-hydrochlorothiazide 100-25 mg 1 tab PO DAILY 90 days sumatriptan succinate 100 mg PO Q2-4H PRN Tobacco use date assessed: 05/05/24 Dental Screening Dental Screen Date: 05/05/24 Did you have a dental visit in the last 12 months?: Yes Did you have a dental problem in the last 6 months where you did not have access to dental care?: No Was dental information given to patient?: Patient has dentist HPI HPI Comments History of Present Illness Details 53-year-old female presents for an extended physical exam She admits to taking her medications as prescribed without adverse reactions Acute issue(s) - Intermittent nonproductive cough. Recovering from upper respiratory viral illness. Negative COVID and flu test at an urgent care clinic Past Medical History - hypertension, hypothyroidism, myopia (wears contacts), migraines Social History - Nonsmoker. Does not vape. Drinks 1 glass of wine socially. Denies recreational drug use - Has been making healthy dietary choices. Exercises routinely. Generally sleep well Health maintenance - Last eye exam was 2 months ago - Last dental visit was last month. She goes for dental check up every 6 months - Last tetanus vaccine was more than 10 years ago; received Tdap vaccine today - Up-to-date on the shingles vaccines - She has not been vaccinated for pneumonia. Recommended pneumonia vaccines; she may get the vaccine from the local pharmacy - Up-to-date on the flu vaccine - Last pap smear test was in 12/19/2021 with [facility] electrician constructor supervisor: Negative. [facility] record reviewed and confirmed - Last mammogram was in 02/07/2024 with [facility] electrician constructor supervisor: Negative. 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 1. Little interest or pleasure in doing things: not at all 2. Feeling down, depressed, or hopeless: not at all 3. Trouble falling or staying asleep, or sleeping too much: not at all 4. Feeling tired or having little energy: several days 5. Poor appetite or overeating: not at all 6. Feeling bad about yourself - or that you are a failure or have let yourself or your family down: not at all 7. Trouble concentrating on things, such as reading the newspaper or watching television: not at all 8. Moving or speaking so slowly that other people could have noticed. Or the opposite - being so fidgety or restless that you have been moving around a lot more than usual: not at all 9. Thoughts that you would be better off or of hurting yourself in some way: not at all Total score: 1 Depression Screening Interpretation: Negative Depression Screening Done: Yes 93616 - PHQ-9 Billing: Yes Source: Developed by Drs. Lamberto Kelly, Ramya Jaimes, Law Coleman and colleagues, with an educational salvador from [employer]. Thrive Questionnaire Date Thrive assessed: 05/05/24 I am a: Patient What is your living situation today?: I have a steady place to live Within the past 12 months, did the food you bought not last and you didn't have the money to get more?: Never true Within the past 12 months, did you worry whether your food would run out before you got money to buy more?: Never true Do you have trouble paying for medicines?: No Do you have trouble getting transportation to medical appointments?: No Do you have trouble paying your heating and electricity bill?: No Do you have trouble taking care of your child, family member or friend?: No Do you have trouble with day-to-day activities such as bathing, preparing meals, shopping, managing finances, etc.?: No Are you currently unemployed and looking for a job?: No Are you interested in more education?: No Please select the resources that you would like help with: None Currently or been in a relationship where the following occur: No concerns reported THRIVE Score: 0 AUDIT C Alcohol Use Questionnaire (AUDIT-C) 1. How often do you have a drink containing alcohol?: Monthly or less 2. How many drinks containing alcohol do you have on a typical day when you are drinking?: 1 or 2 3. How often do you have six or more drinks on one occasion?: Never Total Score: 1 Score Reviewed/Action Taken: Yes TAMMY-7 AMB Questionnaire TAMMY-7 Date TAMMY - 7 assessed: 05/05/24 Feeling nervous, anxious, or on edge: 1 = Several days Not being able to stop or control worryin = Not at all Worrying too much about different things: 1 = Several days Trouble relaxin = Several days Being so restless that it is hard to sit still: 0 = Not at all Becoming easily annoyed or irritable: 0 = Not at all Feeling afraid as if something awful might happen: 0 = Not at all Total TAMMY-7 score (0-4 normal; 5-9 mild; 10-14 moderate; 15-21 severe): 3 Source: Developed by Drs. Lamberto Kelly, Ramya Jaimes, Law Coleman and colleagues, with an educational salvador from [employer]. Review of Systems Const Details: Denies chills, Denies fatigue, Denies fever(s), Denies headache(s) and Denies weakness HEENT Denies change in vision, Denies dizziness, Denies headache(s), Denies hearing loss, Denies nasal congestion, Denies sinus pain, Denies sinus pressure and Denies sore throat Card Denies chest pain, Denies lightheadedness, Denies dyspnea and Denies other (palpitations) Resp Reports cough, Denies dyspnea and Denies wheezing GI Denies abdominal pain, Denies melena, Denies hematochezia, Denies change in bowel habits, Denies dyspepsia and Denies nausea Denies hematuria and Denies dysuria Musc Denies abnormal gait, Denies myalgias, Denies arthralgias, Denies numbness and Denies tingling Skin/Breast Denies rash, Denies unusual bruising and Denies wounds Neuro Denies abnormal gait, Denies dizziness, Denies headache(s), Denies memory loss, Denies numbness, Denies Sensory deficit (Neuro), Denies tingling and Denies weakness Psych Denies anxiety, Denies depression and Denies memory loss Endo Denies cold intolerance, Denies fatigue, Denies heat intolerance, Denies polydipsia and Denies polyuria Jesse/Lymph Denies easy bleeding and Denies easy bruising Aller/Immun Denies wheezing Physical exam (Primary Care) Vital Signs: Last Vital Signs Temp 97.6 F 05/05/24 12:09 Pulse 83 05/05/24 12:09 Resp 16 05/05/24 12:09 BP 114/70 05/05/24 12:45 BMI result Body Mass Index 32.4 Tobacco/Smoking Status: Tobacco use Status Tobacco use date assessed 05/05/24 05/05/24 12:12 Patient Tobacco Use Status Never used Tobacco 05/05/24 12:06 e-Cigarette/Vaping Use Never Used 05/05/24 12:06 PHQ-9: PHQ-9 Score PHQ-9: Total score 1 05/05/24 14:33 Depression Screening Interpretation: Negative Thrive Assessment: Date of Thrive Assessment Date Thrive assessed 05/05/24 05/05/24 12:06 Currently or been in a relationship where the following occur: No concerns reported Const Other: General: no acute distress, well developed, alert and awake Nutritional Appearance: well nourished Orientation/consciousness: patient oriented x3 HENMT Head: Yes normocephalic and Yes atraumatic Ears: hearing grossly normal bilaterally and TM's normal bilaterally General nose exam: Normal external nose present and Normal nares present Mouth: Normal oral and palatal mucosa present and moist mucous membranes Teeth and gingiva: dentition normal Throat: Yes oropharynx normal Eyes Pupils: Equal, round and reactive pupils present and Pupil accommodation reflex normal EOM: EOMs intact bilaterally Neck Neck: Yes normal visual inspection, Yes no lymphadenopathy and Yes trachea midline Thyroid: Thyroid normal Carotids: no bruits Lymphatic: no lymphadenopathy noted Chest Chest palpation & inspection: normal inspection of the chest Resp Effort & Inspection: normal respiratory effort Auscultation: clear to auscultation bilaterally Cardio Rate: regular rate Rhythm: regular rhythm Heart sounds: S1 normal heart sound present, S2 normal heart sound present, no gallops, no murmurs and no rubs Bruits: no abdominal aortic bruits and no carotid bruits GI Palpation (GI): No Abdominal aortic bruit present, Soft to palpation, nontender, No hepatosplenomegaly present and No Rebound tenderness present Auscultation: normal bowel sounds General: Yes no CVA tenderness Back/Spine/Pelvis Back: no CVA tenderness Cervical Spine: cervical ROM normal and No Cervical spine tenderness Thoracic/Lumbar Spine: thoraco-lumbar ROM normal, No pain with thoraco-lumbar ROM, No thoracic spinal tenderness and No lumbar spinal tenderness Skin General: warm and dry. Normal skin color. Normal skin turgor Lesions: no lesions Rashes: no rashes Trauma: no lacerations or abrasions Wounds: no wounds Nails: normal Neuro General: patient oriented x3, gait normal and CN's II-XI intact bilaterally Cranial nerves: Yes Equal, round and reactive pupils present Cognition (Neuro): normal cognition Gait exam (Neuro): Normal gait present Motor exam (neuro): 5/5 motor strength present throughout Sensory Exam: No Sensory deficit (Neuro) Deep tendon reflexes (DTR's): Right patellar reflex intensity grade: 2+ and Left patellar reflex intensity grade: 2+ Extrem General: Yes normal to inspection, No edema and No calf tenderness Psych Appearance: grossly normal Affect: normal affect Attitude: cooperative Thought process: Normal thought process present Immunizations Boostrix Tdap 2.5 Lf unit-8 mcg-5 Lf/0.5 mL intramuscular syringe Performing Provider: Tone Carrillo CNP Performing Location: [facility] Administered by: Nancy Aparicio CMA on 05/05/24 14:34 Dose Route Admin Location Dispensed Lot Number Expiration Date [facility] Varnish Inspector 0.5 mL IM Right Deltoid 0.5 mL [id number] 06/06/26 [id number] [employer] VIS Given Date VIS Provided VIS Publication Date 05/05/24 Single Vaccine 20 Eligibility Eligibility Date Funding Source Not [facility] Eligible 05/05/24 Private Coding Level of Care Code Est Pt Prev Care 40-64y(76710) Diagnoses Normal physical exam Z00.00 Essential hypertension I10 Hypercholesterolemia E78.00 Hypothyroidism E03.9 Obesity (BMI 30-39.9) E66.9 Cough R05.9 Additional Codes PHQ-9 - 89365 - PHQ-9 Billing: Yes ([id number]) Assessment & Plan Assessment & Plan (1) Normal physical exam: Code(s): Z00.00 - Encounter for general adult medical examination without abnormal findings Category: Medical Plan: No significant functional limitations noted. Advised to get lab work done in follow-up for telehealth visit in 2-3 weeks for labs review. Return with symptoms or concerns. Verbalized understanding and agreed with the treatment plan. (2) Essential hypertension: Code(s): I10 - Essential (primary) hypertension Category: Medical Plan: Resting blood pressure is 114/70, within goal of less than 140/90. Continue current treatment regimen. Low-sodium diet encouraged. Will continue to monitor. Verbalized understanding and agreed with the plan. (3) Hypercholesterolemia: Code(s): E78.00 - Pure hypercholesterolemia, unspecified Category: Medical Plan: Recent LDL level slightly elevated, 101. Triglycerides, total cholesterol, and HDL levels are normal. Advised to limit foods high in saturated fat and avoid foods high in trans fat. Routine exercise encouraged. Will recheck lipid panel levels in 3 months. Verbalized understanding and agreed with the treatment plan. (4) Hypothyroidism: Code(s): E03.9 - Hypothyroidism, unspecified Category: Medical Plan: Continue current treatment regimen. Will check TSH/T4 levels and make changes as needed. Verbalized understanding and agreed with the treatment plan. (5) Obesity (BMI 30-39.9): Code(s): E66.9 - Obesity, unspecified Category: Medical Plan: She currently weighs 183 lb, BMI is 32.4. Declines referral to a news anchor and notes that she will continue to make healthy dietary choices and exercise routinely. Healthy diet and routine exercise encouraged. Follow-up as needed. Verbalized understanding and agreed with the plan. (6) Cough: Code(s): R05.9 - Cough, unspecified Category: Medical Plan: Related to viral illness No evidence of bacterial infection Viral illness There is no antibiotic medication for viruses.? They must run their course.? Most average 5-7 days but 7-10 days is not uncommon and up to 14 days is still possible.? A cough is often the last symptom to resolve and this can last for weeks in some cases. Rest Hydrate well -? Drink plenty of fluids.? Especially water. Tylenol or ibuprofen for muscle aches, headache, fever/discomfort Return for new or worsening symptoms Verbalized understanding and agreed with treatment plan. Orders: Orders Comprehensive [place]. Panel Fast Today Z00.00 - Encounter for general adult medical examination without abnormal findings Microalbumin, Random (w Creat) Today Z00.00 - Encounter for general adult medical examination without abnormal findings TDaP Immunization Today Z23 - Encounter for immunization Complete Blood Count Auto Diff Today Z00.00 - Encounter for general adult medical examination without abnormal findings
[2024-05-05 12:09] VITALS: BP 112/54; PULSE 83; RESP 16; TEMP 36.4; BMI 32.4
[2024-05-05 12:45] VITALS: BP 114/70
--- OUTSIDE RECORDS SUMMARY | 2024-05-05 13:07 | XMS_ITS | Encounter Summary ---
Author Organization [facility] Address [address] [place] [address] Care Team Providers Care Roller Shop Supervisor Name Role Phone Tone Carrillo NP Primary Care Provider Encounter Details Date Type Department Care Team (Latest Contact Info) Description 04/30/2024 Travel Social History Tobacco Use Types Packs/Day Years Used Date Smoking Tobacco: Never Assessed Sex and Gender Information Value Date Recorded Sex Assigned at Not on file Gender Identity Not on file Sexual Orientation Not on file documented as of this encounter Plan of Treatment Not on file documented as of this encounter Visit Diagnoses Not on filedocumented in this encounter Care Teams Roller Shop Supervisor Relationship Specialty Start Date End Date Tone Carrillo NP [address] [place] [id number] PCP - General 05/16/23 documented as of this encounter
--- OUTSIDE RECORDS SUMMARY | 2024-05-05 13:07 | XMS_ITS | Encounter Summary ---
Author Organization [facility] Address [address] [place] [address] Care Team Providers Care Commercial Real Estate Paralegal Name Role Phone Tone Carrillo NP Primary Care Provider [phone] Encounter Details Date Type Department Care Team (Late st Contact Info) Description 04/30/2024 Scanned Document [address] [place] [phone] Provider, Generic Social History Tobacco Use Types Packs/Day Years Used Date Smoking Tobacco: Never Assessed Sex and Gender Information Value Date Recorded Sex Assigned at Not on file Gender Identity Not on file Sexual Orientation Not on file documented as of this encounter Plan of Treatment Not on file documented as of this encounter Visit Diagnoses Not on filedocumented in this encounter Care Teams Commercial Real Estate Paralegal Relationship Specialty Start Date End Date Tone Carrillo NP [address] [place] [phone] PCP - General 05/16/23 documented as of this encounter
--- OUTSIDE RECORDS SUMMARY | 2024-05-05 13:07 | XMS_ITS | Clinical Summary ---
Author Organization [facility] Address [address] [place] [address] Care Team Providers Care Insurance Legal Assistant Name Role Phone Tone Carrillo NP Primary Care Provider [phone] Allergies No known active allergies Medications Medication [...] needed for congestion. 20 tablet 05/16/2023 Active fluticasone (FloNASE) 50 mcg/spray nasal sprayIndications:Fl u-like symptoms,Viral upper respiratory infection 1 spray into each nostril daily. 1 each 04/30/2024 Active proMETHAZINE-dextro methorphan (proMETHAZINE-DM) 6.25-15 MG/5ML syrupIndications:Fl u-like symptoms,Viral upper respiratory infection Take 5 mL by mouth 4 times daily (every 6 hours) as needed for cough. 80 mL 04/30/2024 Active predniSONE (DELTASONE) 20 MG tabletIndications:F india-like symptoms,Viral upper respiratory infection Take 1 tablet (20 mg total) by mouth daily. Take in the morning with food. 5 tablet 04/30/2024 Active cetirizine (ZyrTEC) 10 MG tabletIndications:F india-like symptoms,Viral upper respiratory infection Take 1 tablet (10 mg total) by mouth daily. 30 tablet 04/30/2024 05/30/2024 Active Active Problems No known active problems Encounters Date Type Department Care Team Description 04/30/2024 10:05 AM EST Office Visit [facility] [address] [phone] Williams Jay MD Wiggins, Miriam K, PA-C Flu-like symptoms (Primary Dx); Viral upper respiratory infection 04/30/2024 Scanned Document [address] [place] [phone] Provider, Generic 04/30/2024 Travel 04/30/2024 Scanned Document [address] [place] [phone] Provider, Generic from Last 3 Months Social History Tobacco Use Types Packs/Day Years Used Date Smoking Tobacco: Never Assessed Sex and Gender Information Value Date Recorded Sex Assigned at Not on file Gender Identity Not on file Sexual Orientation Not on file Last Filed Vital Signs Vital Sign Reading Time Taken Comments Blood Pressure 114/74 04/30/2024 10:05 AM EST Pulse 111 04/30/2024 10:05 AM EST Temperature 37 ??C (98.6 ??F) 04/30/2024 10:05 AM EST Respiratory Rate 18 04/30/2024 10:05 AM EST Oxygen Saturation 100% 04/30/2024 10:05 AM EST Inhaled Oxygen Concentration - - Weight - - Height 158.8 cm (5' 2.5 ) 04/30/2024 10:05 AM ES T Body Mass Index - - Plan of Treatment Health Maintenance Due Date Last Done Comments Hepatitis C Virus Screening 1969 HIV Screening 1982 DTaP/Tdap/Td Vaccines (1 - Tdap) 1988 Hepatitis B Vaccines (1 of 3 - 19+ 3-dose series) 05/16 Pap Smear (Ages 21-65) 1990 Mammogram 2009 Colonoscopy 2014 Pneumococcal Vaccines 50+ (1 of 1 - PCV) 05/26/2019 Zoster (Shingles) Vaccine (1 of 2) 05/26/2019 Influenza Vaccine 10/17/2023 COVID-19 Vaccine (1 - 2023- season) 2023 Procedures Procedure Name Priority Date/Time Associated Diagnosis Comments POCT RAPID STREP A Routine 04/30/2024 10 :21 AM EST Flu-like symptoms POCT RAPID INFLUENZA Routine 04/30/2024 10:21 AM EST Flu-like symptoms POCT RAPID COVID-19 AG (FDA EUA) Routine 04/30/2024 10:20 AM EST Flu-like symptoms from Last 3 Months Results * POCT Rapid Influenza (04/30/2024 10:21 AM EST) Pathologist [facility] Inflenza A Ag Negative Negative Influenza B Ag Negative Negative Nasopharyngeal 04/30/2024 10 :21 AM EST Yris K Baum PA-C POINT OF CARE TEST ORDERABLES * POCT Rapid Strep A (04/30/2024 10:21 AM EST) Rapid Strep A Screen Negative Negative Lot Number [id number] Registered Nurse Maternity Pass Pass Throat 04/30/2024 10:2 1 AM EST Yris K Baum PA-C POINT OF CARE TEST ORDERABLES * POCT Rapid COVID-19 Antigen (FDA EUA) (04/30/2024 10:20 AM EST) Pathologist [facility] COVID-19 Rapid Antigen, POC (FDA EUA) Negative Result Comments: A Positive Result does not rule out bacterial infection or co-infection with other viruses. Clinical correlation advised. A Negative Result in symptomatic patients should be considered presumptive and needs confirmation by PCR. Kit Lot Number [id number] Registered Nurse Maternity Pass Pass Swab, Nasal Specimen from nose / Unknown 04/30/2024 10:20 AM EST Yris Baum PA-C POINT OF CARE TEST ORDERABLES from Last 3 Months Care Teams Insurance Legal Assistant Relationship Specialty Start Date End Date Tone Carrillo NP [address] [place] [address] [phone] PCP - General 05/16/23
--- OUTSIDE RECORDS SUMMARY | 2024-05-05 13:07 | XMS_ITS | Encounter Summary ---
Author Organization [facility] Address [address] [place] [address] Care Team Providers Care Materials Management Supervisor Name Role Phone Tone Carrillo NP Primary Care Provider [phone] Reason for Visit * Reason Comments Cough Pt c/o cough, head c ongestion, fatigue, chills, generalized body aches onset 1am Covid at home this morning was neg but it was Encounter Details Date Type Department Care Team (Late st Contact Info) Description 04/30/2024 10:05 AM EST Office Visit [facility] [address] [phone] Williams Jay MD [address] [place] [address] Yris Baum PA-C [address] [place] [id number] Flu-like symptoms (Primary Dx); Viral upper respiratory infection Social History Tobacco Use Types Packs/Day Years Used Date Smoking Tobacco: Never Assessed Sex and Gender Information Value Date Recorded Sex Assigned at Not on file Gender Identity Not on file Sexual Orientation Not on file documented as of this encounter Last Filed Vital Signs Vital Sign Reading [...] ES T Body Mass Index - - documented in this encounter Progress Notes * Yris Baum PA-C - 04/30/2024 10:10 AM EST Images from the original note were not included. [facility] [address] [phone] Encounter Date: 04/30/24 Assessment & Plan & Data Synthesis Crystal was seen today for cough. Diagnoses and all orders for this visit: Flu-like symptoms - POCT Rapid COVID-19 Antigen (FDA EUA) - POCT Rapid Influenza - POCT Rapid Strep A - fluticasone (FloNASE) 50 mcg/spray nasal spray; 1 spray into each nostril daily. - proMETHAZINE-dextromethorphan (proMETHAZINE-DM) 6.25-15 MG/5ML syrup; Take 5 mL by mouth 4 times daily (every 6 hours) as needed for cough. - predniSONE (DELTASONE) 20 MG tablet; Take 1 tablet (20 mg total) by mouth daily. Take in the morning with food. - cetirizine (ZyrTEC) 10 MG tablet; Take 1 tablet (10 mg total) by mouth daily. Viral upper respiratory infection - fluticasone (FloNASE) 50 mcg/spray nasal spray; 1 spray into each nostril daily. - proMETHAZINE-dextromethorphan (proMETHAZINE-DM) 6.25-15 MG/5ML syrup; Take 5 mL by mouth 4 times daily (every 6 hours) as needed for cough. - predniSONE (DELTASONE) 20 MG tablet; Take 1 tablet (20 mg total) by mouth daily. Take in the morning with food. - cetirizine (ZyrTEC) 10 MG tablet; Take 1 tablet (10 mg total) by mouth daily. 1. Flu-like symptoms - POCT Rapid COVID-19 Antigen (FDA EUA) - POCT Rapid Influenza - POCT Rapid Strep A - fluticasone (FloNASE) 50 mcg/spray nasal spray; 1 spray into each nostril daily. Dispense: 1 each; Refill: 0 - proMETHAZINE-dextromethorphan (proMETHAZINE-DM) 6.25-15 MG/5ML syrup; Take 5 mL by mouth 4 times daily (every 6 hours) as needed for cough. Dispense: 80 mL; Refill: 0 - predniSONE (DELTASONE) 20 MG tablet; Take 1 tablet (20 mg total) by mouth daily. Take in the morning with food. Dispense: 5 tablet; Refill: 0 - cetirizine (ZyrTEC) 10 MG tablet; Take 1 tablet (10 mg total) by mouth daily. Dispense: 30 tablet; Refill: 0 2. Viral upper respiratory infection - fluticasone (FloNASE) 50 mcg/spray nasal spray; 1 spray into each nostril daily. Dispense: 1 each; Refill: 0 - proMETHAZINE-dextromethorphan (proMETHAZINE-DM) 6.25-15 MG/5ML syrup; Take 5 mL by mouth 4 times daily (every 6 hours) as needed for cough. Dispense: 80 mL; Refill: 0 - predniSONE (DELTASONE) 20 MG tablet; Take 1 tablet (20 mg total) by mouth daily. Take in the morning with food. Dispense: 5 tablet; Refill: 0 - cetirizine (ZyrTEC) 10 MG tablet; Take 1 tablet (10 mg total) by mouth daily. Dispense: 30 tablet; Refill: 0 Medical Decision Making: Patient presents with influenza like symptoms. We discussed the pathophysiology and how can take anywhere between 5-8 days for symptoms to resolve or show signs of improvement. The nonuse of antibiotics was discussed. We discussed heavy rest including quarantining oneself to prevent spread, heavy fluids and to go to ED immediately with any difficulty getting out of bed, worsening fever or difficul ty breathing. I considered mastoiditis, pneumonia, GABHS, sinusitis, INCOME TAX CONSULTANT, retropharyngeal abscess, meningitis, otitis media, orbital cellultis and other bacterial infections but the hx, exam & data did not support the diagnoses. The pt/family was advised that some diseases present atypically and the patient was given explicit discharge instructions. Results for orders placed or performed in visit on 04/30/24 POCT Rapid COVID-19 Antigen (FDA EUA) Collection Time: 04/30/24 10:20 AM Result Value Ref Range COVID-19 Rapid Antigen, POC (FDA EUA) Negative Result Comments: A Positive Result does not rule outbacterial infection or co-infection with other viruses. Clinical correlation advised. A Negative Result in symptomatic patients should be considered presumptive and needs confirmation by PCR. Kit Lot Number [id number] Rodeo Performer Pass Pass POCT Rapid Influenza Collection Time: 04/30/24 10:21 AM Result Value Ref Range Inflenza A Ag Negative Negative Influenza B Ag Negative Negative POCT Rapid Strep A Collection Time: 04/30/24 10:21 AM Result Value Ref Range Rapid Strep A Screen Negative Negative Lot Number [id number] Rodeo Performer Pass Pass Communication barriers and lifestyle preferences were addressed with the patient. The care plan including medications and self-management goals were reviewed to the best of the patient's ability. Allquestions and concerns were answered. Patient and/or family verbalized understanding of the plan ofcare. Subjective History of present illness: Crystal Rios is a 53 y.o. female Chief Complaint: Fever, chills, malaise, cough, nasal congestion, body aches with onset of symptomswas 1 AM this morning Duration: today Severity: moderate has tried OTC medications. I have reviewed the patients medications, allergies, past medical history, social history and family history as documented. History reviewed. No pertinent past medical history. History reviewed. No pertinent surgical history. History reviewed. No pertinent family history. amLODIPine (NORVASC) 2.5 MG tablet Take 2.5 mg by mouth daily. FOR 90 DAYS levothyroxine (SYNTHROID, LEVOTHROID) 112 MCG tablet Take 112 mcg by mouth daily. losartan-hydroCHLOROthiazide (HYZAAR) 100-25 MG per tablet Take 1 tablet by mouth daily. carbamide peroxide (DEBROX) 6.5 % otic solution Administer 5 drops into both ears 2 (two) times a day. fluticasone (FloNASE) 50 mcg/spray nasal spray 1 spray into each nostril daily. guaiFENesin (MUCINEX) 600 MG 12 hr tablet Take 2 tablets (1,200 mg total) by mouth 2 (two) times a day as needed for congestion. SUMAtriptan (IMITREX) 100 MG tablet PLEASE SEE ATTACHED FOR DETAILED DIRECTIONS No Known Allergies Review of Systems: Constitutional: has had subjective fever, chills, malaise ENT: has had sore throat, ear pain or sinus congestion Respiratory: has had cough or shortness of breath Gastrointestinal: Denies abdominal pain. Denies nausea or vomiting. Neurologic: has had headache Musculoskeletal: has had muscle aches. Objective Vitals: 04/30/24 1005 BP: 114/74 Pulse: (!) 111 Resp: 18 Temp: 98.6 ??F (37 ??C) SpO2: 100% Height: 1.588 m (5' 2.5 ) Examination: General: ill appearing but no acute distress. Eyes: Non-icteric sclera. Mild bilateral conjunctival injection without discharge Head: normocephalic, atraumatic. ENT: Oropharynx without tonsillar enlargement, posterior pharynx without PND, no peritonsillar abscess. Uvula midline rises on phonation. Normal voice, moist mucous membranes. Ears Bilateral- patienthas effusions of the middle ear without erythema of the TM. Middle ear structures are normal in appearance. Sinuses with no tenderness. Lungs: Breath sounds equal bilaterally. No adventitious sounds audible. Neck: No resistance to flexion. Heart: No murmurs, RRR Extremities. Moving all extremities, well perfused. Psychiatric: Affect and mood normal. Interactive and conversant. Alert and oriented. Skin: Warm and dry without visible rash. Lymphatic: No palpable lymphadenopathy. Non tender nodes. Yris Baum PA-C 04/30/24 10:24 AM documented in this encounter Plan of Treatment Not on file documented as of this encounter Procedures Procedure Name Priority Date/Time Associated Diagnosis Comments POCT RAPID INFLUENZA Routine 04/30/2024 10:21 AM EST Flu-like symptoms POCT RAPID STREP A Routine 04/30/2024 10 :21 AM EST Flu-like symptoms POCT RAPID COVID-19 AG (FDA EUA) Routine 04/30/2024 10:20 AM EST Flu-like symptoms documented in this encounter Results * POCT Rapid Strep A (04/30/2024 10:21 AM EST) [facility] Rapid Strep A Screen Negative Negative Lot Number [id number] Rodeo Performer Pass Pass Throat 04/30/2024 10:2 1 AM EST Yris Schaferggins PA-C POINT OF CARE TEST ORDERABLES * POCT Rapid Influenza (04/30/2024 10:21 AM EST) Inflenza A Ag Negative Negative Influenza B Ag Negative Negative Nasopharyngeal 04/30/2024 10 :21 AM EST Yris Meghana Baum PA-C POINT OF CARE TEST ORDERABLES * POCT Rapid COVID-19 Antigen (FDA EUA) (04/30/2024 10:20 AM EST) Pathologist [facility] COVID-19 Rapid Antigen, POC (FDA EUA) Negative Result Comments: A Positive Result does not rule out bacterial infection or co-infection with other viruses. Clinical correlation advised. A Negative Result in symptomatic patients should be considered presumptive and needs confirmation by PCR. Kit Lot Number [id number] Rodeo Performer Pass Pass Swab, Nasal Specimen from nose / Unknown 04/30/2024 10:20 AM EST Yris Schaferggins PA-C POINT OF CARE TEST ORDERABLES documented in this encounter Visit Diagnoses Diagnosis Flu-like symptoms- Primary Viral upper respiratory infection Acute upper respiratory infections of unspecified site documented in this encounter Care Teams Materials Management Supervisor Relationship Specialty Start Date End Date Tone Carrillo NP [address] [place] [phone] PCP - General 05/16/23 documented as of this encounter
--- OUTSIDE RECORDS SUMMARY | 2024-05-05 13:07 | XMS_ITS | Encounter Summary ---
Author Organization [facility] Address [address] [place] [address] Care Team Providers Care Director Of Engineering Name Role Phone Tone Carrillo NP Primary Care Provider [phone] Encounter Details Date Type Department Care Team (Late st Contact Info) Description 04/30/2024 Scanned Document [address] [place] [phone] Provider, Generic Social History Tobacco Use [...] on filedocumented in this encounter Care Teams Director Of Engineering Relationship Specialty Start Date End Date Tone Carrillo NP [address] [place] [address] PCP - General 05/16/23 documented as of this encounter
== END 2024-05-05 13:12 | disposition home or self-care (01) ==
PROVIDERS: PCP Nurse Practitioner Family; Visit Provider Nurse Practitioner Family
DX: Z00.00 Encounter for general adult medical examination without abnormal findings (principal); I10 Essential (primary) hypertension; E66.9 Obesity, unspecified; Z68.32 Body mass index [BMI] 32.0-32.9, adult; E78.00 Pure hypercholesterolemia, unspecified; E03.9 Hypothyroidism, unspecified; R05.9 Cough, unspecified; Z23 Encounter for immunization

== ENCOUNTER → 2024-05-05 12:02 | Outpatient (BNVA) | payer OTHER, SELFPAY | PROVIDERS: PCP Nurse Practitioner Family; Visit Provider Nurse Practitioner Family | DX: Z00.00 Encounter for general adult medical examination without abnormal findings (principal); Z23 Encounter for immunization; I10 Essential (primary) hypertension; E78.00 Pure hypercholesterolemia, unspecified; E03.9 Hypothyroidism, unspecified; E66.9 Obesity, unspecified; Z68.32 Body mass index [BMI] 32.0-32.9, adult; R05.9 Cough, unspecified | CPT/HCPCS: 90471; 90715; 96127 ==

== ENCOUNTER 2024-05-28 08:33 | Outpatient (REF) | payer OTHER, SELFPAY ==
--- OUTSIDE RECORDS SUMMARY | 2024-05-28 09:10 | XMS_ITS | Clinical Summary ---
Author Organization [facility] Address [address] [place] [address] Care Team Providers Care Steam Gigger Name Role Phone Tone Carrillo NP Primary Care Provider [phone] Allergies No known active allergies Medications Medication [...] Description 04/30/2024 10:05 AM EST Office Visit [facility] [address] [phone] Williams Jay MD Wiggins, Miriam K, PA-C Flu-like symptoms (Primary Dx); Viral upper respiratory infection 04/30/2024 Scanned Document [address] [place] [phone] Provider, Generic 04/30/2024 Travel 04/30/2024 Scanned Document [address] [place] [phone] Provider, Generic from Last 3 Months Social [...] Rapid Influenza (04/30/2024 10:21 AM EST) Pathologist [facility] Inflenza A Ag Negative Negative Influenza B Ag Negative Negative Nasopharyngeal 04/30/2024 10 :21 AM EST Yris K Baum PA-C POINT OF CARE TEST ORDERABLES * POCT Rapid Strep A (04/30/2024 10:21 AM EST) Rapid Strep A Screen Negative Negative Lot Number [id number] Drill Press Operator Pass Pass Throat 04/30/2024 10:2 1 AM EST Yris K Baum PA-C POINT OF CARE TEST ORDERABLES * POCT Rapid COVID-19 Antigen (FDA EUA) (04/30/2024 10:20 AM EST) Pathologist [facility] COVID-19 Rapid Antigen, POC (FDA EUA) Negative Result Comments: A Positive Result does not rule out bacterial infection or co-infection with other viruses. Clinical correlation advised. A Negative Result in symptomatic patients should be considered presumptive and needs confirmation by PCR. Kit Lot Number [id number] Drill Press Operator Pass Pass Swab, Nasal Specimen from nose / Unknown 04/30/2024 10:20 AM EST Yris Baum PA-C POINT OF CARE TEST ORDERABLES from Last 3 Months Care Teams Steam Gigger Relationship Specialty Start Date End Date Tone Carrillo NP [address] [place] [address] [id number] PCP - General 05/16/23
--- OUTSIDE RECORDS SUMMARY | 2024-05-28 09:10 | XMS_ITS | Encounter Summary ---
Author Organization [facility] Address [address] [place] [address] Care Team Providers Care Bearing Machine Operator Name Role Phone Tone Carrillo NP Primary Care Provider [phone] Encounter Details Date Type Department Care Team (Late st Contact Info) Description 04/30/2024 Scanned Document [address] [place] [phone] Provider, Generic Social History Tobacco Use [...] on filedocumented in this encounter Care Teams Bearing Machine Operator Relationship Specialty Start Date End Date Tone Carrillo NP [address] [place] [phone] PCP - General 05/16/23 documented as of this encounter
--- OUTSIDE RECORDS SUMMARY | 2024-05-28 09:10 | XMS_ITS | Encounter Summary ---
Author Organization [facility] Address [address] [place] [address] Care Team Providers Care Machine Maintenance Technician Name Role Phone Tone Carrillo NP Primary Care Provider [phone] Reason for Visit * Reason Comments Cough Pt c/o cough, head c ongestion, fatigue, chills, generalized body aches onset 1am Covid at home this morning was neg but it was Encounter Details Date Type Department Care Team (Late st Contact Info) Description 04/30/2024 10:05 AM EST Office Visit [facility] [address] [phone] Williams Jay MD [address] [place] [address] Yris Baum PA-C [address] [place] [phone] Flu-like symptoms (Primary Dx); Viral upper respiratory [...] from the original note were not included. [facility] [address] [phone] Encounter Date: 04/30/24 Assessment & Plan & [...] breathing. I considered mastoiditis, pneumonia, GABHS, sinusitis, FIELD ARTILLERY RADAR OPERATOR, retropharyngeal abscess, meningitis, otitis media, orbital cellultis [...] needs confirmation by PCR. Kit Lot Number [id number] Electronics System Mechanic Pass Pass POCT Rapid Influenza Collection Time: 04/30/24 10:21 AM Result Value Ref Range Inflenza A Ag Negative Negative Influenza B Ag Negative Negative POCT Rapid Strep A Collection Time: 04/30/24 10:21 AM Result Value Ref Range Rapid Strep A Screen Negative Negative Lot Number [id number] Electronics System Mechanic Pass Pass Communication barriers and lifestyle preferences [...] Rapid Strep A (04/30/2024 10:21 AM EST) [facility] Rapid Strep A Screen Negative Negative Lot Number [id number] Electronics System Mechanic Pass Pass Throat 04/30/2024 10:2 1 AM EST Yris Schaferggins PA-C POINT OF CARE TEST ORDERABLES * POCT Rapid Influenza (04/30/2024 10:21 AM EST) Inflenza A Ag Negative Negative Influenza B Ag Negative Negative Nasopharyngeal 04/30/2024 10 :21 AM EST Yris Meghana Baum PA-C POINT OF CARE TEST ORDERABLES * POCT Rapid COVID-19 Antigen (FDA EUA) (04/30/2024 10:20 AM EST) Pathologist [facility] COVID-19 Rapid Antigen, POC (FDA EUA) Negative Result Comments: A Positive Result does not rule out bacterial infection or co-infection with other viruses. Clinical correlation advised. A Negative Result in symptomatic patients should be considered presumptive and needs confirmation by PCR. Kit Lot Number [id number] Electronics System Mechanic Pass Pass Swab, Nasal Specimen from nose / Unknown 04/30/2024 10:20 AM EST Yris Schaferggins PA-C POINT OF CARE TEST ORDERABLES documented in this encounter Visit Diagnoses Diagnosis Flu-like symptoms- Primary Viral upper respiratory infection Acute upper respiratory infections of unspecified site documented in this encounter Care Teams Machine Maintenance Technician Relationship Specialty Start Date End Date Tone Carrilol NP [address] [place] [phone] PCP - General 05/16/23 documented as of this encounter
--- OUTSIDE RECORDS SUMMARY | 2024-05-28 09:10 | XMS_ITS | Encounter Summary ---
Author Organization [facility] Address [address] [place] [address] Care Team Providers Care Salt Washer Name Role Phone Tone Carrillo NP Primary Care Provider [phone] Encounter Details Date Type Department Care Team (Late st Contact Info) Description 04/30/2024 Scanned Document [address] [place] [phone] Provider, Generic Social History Tobacco Use [...] on filedocumented in this encounter Care Teams Salt Washer Relationship Specialty Start Date End Date Tone Carrillo NP [address] [place] [phone] PCP - General 05/16/23 documented as of this encounter
--- OUTSIDE RECORDS SUMMARY | 2024-05-28 09:11 | XMS_ITS | Encounter Summary ---
Author Organization [facility] Address [address] [place] [address] Care Team Providers Care Social Human Services Assistants Name Role Phone Tone Carrillo NP Primary [...] on filedocumented in this encounter Care Teams Social Human Services Assistants Relationship Specialty Start Date End Date Tone Carrillo NP [address] [place] [phone] PCP - General 05/16/23 documented as of this encounter
[2024-05-28 11:27] LABS: MANUAL DIFF FLAG NO
[2024-05-28 11:44] LABS: Basophils Percent Auto 0.6 % (0-2); Eosinophils Absolute Auto 0.2 X10*3/uL (0.0-0.4); Eosinophils Percent Auto 4.7 % (0-4); Hematocrit 40.4 % (37.0-47.0); Hemoglobin 13.2 g/dl (12.0-16.0); Imm Gran Abs Auto 0.01 X10*3/uL (0.00-0.03); Imm Gran Pct Auto 0.2 % (0.0-0.4); Lymphocytes Absolute Auto 2.6 X10*3/uL (1.2-4.9); Lymphocytes Percent Auto 49.6 % (20-40); Mean Corpuscular HGB Conc 32.7 g/dl (31.0-35.0); Mean Corpuscular Hemoglobin 27.5 pg (27.0-33.0); Mean Corpuscular Volume 84.2 fL (80.0-98.0); Mean Platelet Volume 10.1 fL (9.4-12.3); Monocytes Absolute Auto 0.4 X10*3/uL (0.1-1.2); Monocytes Percent Auto 8.1 % (2-11); Neutrophils Absolute Auto 1.9 x10*3/uL (2.0-8.3); Neutrophils Percent Auto 36.8 % (45-73); Platelet Count 303 X10*3/uL (160-400); Red Cell Distribution Width 14.4 % (11.0-16.0); White Blood Count 5.2 X10*3/uL (4.8-10.8)
[2024-05-28 12:10] LABS: Alanine Aminotransferase 19 U/L (0-31); Alkaline Phosphatase 72 U/L (39-117); Anion Gap 11 (12-20); Aspartate Amino Transferase 21 U/L (5-31); Bilirubin Total 0.6 mg/dL (0.0-1.0); Blood Urea Nitrogen 22 mg/dL (9-16); Calcium 9.2 mg/dL (8.4-10.2); Carbon Dioxide 27 mmol/L (22-29); Chloride 107 mmol/L (96-108); Estimated Glomerular Filt Rate > 60; Glucose Fasting 87 mg/dL (60-99); Potassium 3.6 mmol/L (3.3-5.1); Sodium 141 mmol/L (135-145); Total Protein 7.3 g/dL (6.5-8.0)
[2024-05-28 12:32] LABS: TSH reflex Free T4 0.63 uIU/mL (0.32-4.0)
[2024-05-28 14:25] LABS: Appearance Urine Clear; Color Urine Yellow; Glucose Urine UA Negative (Negative); Leukocyte Esterase Urine Negative (Negative); Nitrite Urine Negative (Negative); PH 8.5 (5.0-9.0); UMIC TRIGGER UACC YES; Urine Blood Negative (Negative); Urine Ketones Negative (Negative); Urine Protein 30 (1+) mg/dL (Neg-Trace)
[2024-05-28 14:47] LABS: Creatinine Urine 216.46 mg/dL; Microalbum/Creatinine Ratio Ur 19.8 ug/mg cr (<30)
== END 2024-05-28 08:34 | disposition home or self-care (01) ==
LOC: HO.WFDLDS 08:33
PROVIDERS: Visit Provider Nurse Practitioner Family
DX: Z00.00 Encounter for general adult medical examination without abnormal findings (principal); E03.9 Hypothyroidism, unspecified
CPT/HCPCS: 36415; 80053; 81001; 82043; 82570; 84443; 85025

== ENCOUNTER 2024-08-04 08:11 | Outpatient (REF) | payer OTHER, SELFPAY ==
--- OUTSIDE RECORDS SUMMARY | 2024-08-04 08:19 | XMS_ITS | Encounter Summary ---
Author Organization [facility] Address [address] [place] [address] Care Team Providers Care Local Combination Truck Driver Name Role Phone Tone Carrillo NP Primary Care Provider [phone] Encounter Details Date Type Department Care Team (Late st Contact Info) Description 04/30/2024 Scanned Document [address] [place] [phone] Provider, Generic Social History Tobacco Use Types Packs/Day Years Used Date Smoking Tobacco: Never Assessed Comments Unknown Sex and Gender Information Value Date Recorded Sex Assigned at Not on file Legal Sex Female 9:46 AM EST Gender Identity Not on file Sexual Orientation Not on file documented as of this encounter Plan of Treatment Not on file documented as of this encounter Visit Diagnoses Not on filedocumented in this encounter Care Teams Local Combination Truck Driver Relationship Specialty Start Date End Date Tone Carrillo NP [address] [place] [phone] PCP - General 05/16/23 documented as of this encounter
--- OUTSIDE RECORDS SUMMARY | 2024-08-04 08:19 | XMS_ITS | Clinical Summary ---
Author Organization [facility] Address [address] [place] [address] Care Team Providers Care Assistant At Surgery Name Role Phone Tone Carrillo NP Primary Care Provider [phone] Allergies No known active allergies Medications amLODIPine (NORVASC) 2.5 MG tablet Take 2.5 mg by mouth daily. FOR 90 DAYS 4 Active losartan-hydroCH LOROthiazide (HYZAAR) 100-25 MG per tablet Take 1 tablet by mouth daily. 3 Active levothyroxine (SYNTHROID, LEVOTHROID) 112 MCG tablet Take 112 mcg by mouth daily. 4 Active SUMAtriptan (IMITREX) 100 MG tablet PLEASE SEE ATTACHED FOR DETAILED DIRECTIONS 4 Active carbamide peroxide (DEBROX) 6.5 % otic solutionIndicati ons:Bilateral impacted cerumen Administer 5 drops into both ears 2 (two) times a day. 15 mL 4 Active fluticasone (FloNASE) 50 mcg/spray nasal sprayIndications :Bacterial sinusitis 1 spray into each nostril daily. 1 each 4 Active guaiFENesin (MUCINEX) 600 MG 12 hr tabletIndication s:Bacterial sinusitis Take 2 tablets (1,200 mg total) by mouth 2 (two) times a day as needed for congestion. 20 tablet 4 Active fluticasone (FloNASE) 50 mcg/spray nasal sprayIndications :Flu-like symptoms,Viral upper respiratory infection 1 spray into each nostril daily. 1 each 5 Active proMETHAZINE-dex tromethorphan (proMETHAZINE-DM ) 6.25-15 MG/5ML syrupIndications :Flu-like symptoms,Viral upper respiratory infection Take 5 mL by mouth 4 times daily (every 6 hours) as needed for cough. 80 mL 5 Active predniSONE (DELTASONE) 20 MG tabletIndication s:Flu-like symptoms,Viral upper respiratory infection Take 1 tablet (20 mg total) by mouth daily. Take in the morning with food. 5 tablet 5 Active cetirizine (ZyrTEC) 10 MG tabletIndication s:Flu-like symptoms,Viral upper respiratory infection Take 1 tablet (10 mg total) by mouth daily. 30 tablet 5 Active Active Problems No known active problems [...] Zoster (Shingles) Vaccine (1 of 2) 05/26/2019 COVID-19 Vaccine (1 - 2023- season) 2023 Influenza Vaccine 10/16/2024 Insurance [facility] Care Teams Assistant At Surgery Relationship Specialty Start Date End Date Tone Carrillo NP [address] [place] [phone] PCP - General 05/16/23
--- OUTSIDE RECORDS SUMMARY | 2024-08-04 08:19 | XMS_ITS | Encounter Summary ---
Author Organization [facility] Address [address] [place] [address] Care Team Providers Care Warehouse Helper Name Role Phone Tone Carrillo NP Primary Care Provider [phone] Encounter Details Date Type Department Care Team (Late st Contact Info) Description 04/30/2024 Scanned Document [address] [place] [phone] Provider, Generic Social History Tobacco Use [...] on filedocumented in this encounter Care Teams Warehouse Helper Relationship Specialty Start Date End Date Tone Carrillo NP [address] [place] [phone] PCP - General 05/16/23 documented as of this encounter
[2024-08-04 12:09] LABS: Cholesterol 171 mg/dL (<200); HDL Cholesterol 56 mg/dL (>40); LDL Cholesterol Calculated 95 mg/dL (<100); Triglycerides 104 mg/dL (<150)
== END 2024-08-04 08:12 | disposition home or self-care (01) ==
LOC: HO.WFDLDS 08:11
PROVIDERS: Visit Provider Nurse Practitioner Family
DX: E78.00 Pure hypercholesterolemia, unspecified (principal)
CPT/HCPCS: 36415; 80061

== ENCOUNTER 2024-08-11 11:12 | Outpatient (AMB) | payer OTHER, SELFPAY ==
--- NOTE | 2024-08-11 11:09 | MHC.PC.OV ---
Intake Visit Reasons: htn and hypercholesterolemia Intake Note: patient here for follow up on hypercholesterolemia Manager Energy Required: No Is last menstrual period known: No Post menopausal: No Patient : No Allergies No Known Allergies Allergy (Verified 08/11/24 11:20) Medication List - Last Reconciled 08/11/24 by Tone Carrillo CNP amlodipine 2.5 mg PO DAILY 90 days fluticasone propionate 50 mcg/actuation 1 spray intranasal DAILY levothyroxine 112 mcg PO DAILY losartan-hydrochlorothiazide 100-25 mg 1 tab PO DAILY 90 days sumatriptan succinate 100 mg PO Q2-4H PRN Tobacco use date assessed: 08/11/24 Dental Screening Dental Screen Date: 08/11/24 Did you have a dental visit in the last 12 months?: Yes Did you have a dental problem in the last 6 months where you did not have access to dental care?: No Was dental information given to patient?: Patient has dentist HPI HPI Comments History of Present Illness Details 54-year-old female presents for telehealth visit for hypercholesterolemia. She admits to taking her medications as prescribed without adverse reactions. She notes that she checks her blood pressure at home weekly and usually between 114-120/78-82 She offers no complaints and denies acute symptoms at this time. 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 Cognitive needs: No Hearing needs: No Vision needs: No Questionnaire Thrive Questionnaire Date Thrive assessed: 05/02/24 I am a: Patient What is your living situation today?: I have a steady place to live Within the past 12 months, did the food you bought not last and you didn't have the money to get more?: Never true Within the past 12 months, did you worry whether your food would run out before you got money to buy more?: Never true Do you have trouble paying for medicines?: No Do you have trouble getting transportation to medical appointments?: No Do you have trouble paying your heating and electricity bill?: No Do you have trouble taking care of your child, family member or friend?: No Do you have trouble with day-to-day activities such as bathing, preparing meals, shopping, managing finances, etc.?: No Are you currently unemployed and looking for a job?: No Are you interested in more education?: No Please select the resources that you would like help with: None Currently or been in a relationship where the following occur: No concerns reported THRIVE Score: 0 TAMMY-7 AMB Questionnaire TAMMY-7 Date TAMMY - 7 assessed: 05/05/24 Source: Developed by Drs. Lamberto Kelly, Ramya Jaimes, Law Coleman and colleagues, with an educational salvador from [employer]. Review of Systems Const Details: Denies chills, Denies fatigue, Denies fever(s), Denies headache(s) and Denies weakness Cardiac Denies chest pain, Denies claudication, Denies leg edema, Denies lightheadedness, Denies palpitations, Denies dyspnea, Denies dyspnea on exertion, Denies orthopnea and Denies other (Loss of consciousness) Resp Denies cough, Denies excessive phlegm production, Denies dyspnea, Denies dyspnea on exertion, Denies snoring and Denies wheezing Physical exam (Primary Care) Tobacco/Smoking Status: Tobacco use Status Tobacco use date assessed 08/11/24 08/11/24 11:11 Patient Tobacco Use Status Never used Tobacco 08/11/24 11:11 e-Cigarette/Vaping Use Never Used 08/11/24 11:11 Thrive Assessment: Date of Thrive Assessment Date Thrive assessed 05/02/24 08/11/24 11:11 Currently or been in a relationship where the following occur: No concerns reported Const Other: Patient is alert and oriented x3 Telehealth Telehealth Telehealth Platform: Telephone Location of provider rendering services: practice address Location of patient: address on file Patient Identification confirmed using: Name, : Yes Telehealth method: voice only Patient verbally consented to treatment: Yes Patient verbally consented to billing insurance company: Yes Patient informed of any privacy concerns related to visit: Yes Coding Level of Care Code Tele Est Pt Level 3 (46842) Diagnoses Hypercholesterolemia E78.00 Essential hypertension I10 Time Spent (min) 10 Assessment & Plan Assessment & Plan (1) Hypercholesterolemia: Code(s): E78.00 - Pure hypercholesterolemia, unspecified Category: Medical Plan: Recent lipid panel level is normal. Advised to limit foods high in saturated fat and avoid foods high in trans fat. Routine exercise encouraged. Will monitor lipid panel level annually or if presents with related symptoms or concerns. Verbalized understanding and agreed with the plan. (2) Essential hypertension: Code(s): I10 - Essential (primary) hypertension Category: Medical Plan: She checks her blood pressure at home weekly and usually between 114-120/78-82. Continue current treatment regimen. Low-sodium diet encouraged. Follow-up in 3 months or sooner with blood pressure is in persistently above 140/90 with or without symptoms such as headache, visual disturbances, or dizziness. Verbalized understanding and agreed with the plan.
--- OUTSIDE RECORDS SUMMARY | 2024-08-11 11:59 | XMS_ITS | Encounter Summary ---
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 [place] [id number] Provider, Generic Social History Tobacco Use [...] on filedocumented in this encounter Care Teams Pulp Making Plant Operator Relationship Specialty Start Date End Date Tone Carrillo NP [address] [place] [id number] PCP - General 05/16/23 documented as of this encounter
== END 2024-08-11 11:48 | disposition home or self-care (01) ==
LOC: HO.HMCFM 11:12
PROVIDERS: PCP Nurse Practitioner Family; Visit Provider Nurse Practitioner Family
DX: E78.00 Pure hypercholesterolemia, unspecified (principal); I10 Essential (primary) hypertension

== ENCOUNTER → 2024-08-11 11:12 | Outpatient (BNVA) | payer OTHER, SELFPAY | PROVIDERS: PCP Nurse Practitioner Family; Visit Provider Nurse Practitioner Family ==

== ENCOUNTER 2024-11-09 09:47 | Outpatient (AMB) | payer OTHER, SELFPAY ==
--- NOTE | 2024-11-09 09:50 | A.OFFPC_ITS ---
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 Required: No Is last menstrual period known: No Post menopausal: No Patient : No Allergies No Known Allergies Allergy (Verified 11/09/24 09:59) Medication List - Last Reconciled 11/09/24 by Tone Carrillo CNP amlodipine 2.5 mg PO DAILY 90 days estradiol 1 packet transdermal DAILY fluticasone propionate 50 mcg/actuation 1 spray intranasal DAILY levothyroxine 112 mcg PO DAILY losartan-hydrochlorothiazide 100-25 mg 1 tab PO DAILY 90 days progesterone micronized 100 mg PO QAM sumatriptan succinate 100 mg PO Q2-4H PRN Tobacco use date assessed: 11/09/24 Dental Screening Dental Screen Date: 11/09/24 Did you have a dental visit in the last 12 months?: Yes Did you have a dental problem in the last 6 months where you did not have access to dental care?: No Was dental information given to patient?: Patient has dentist HPI HPI Comments History of Present Illness Details 54-year-old female presents for hyperten maria esther follow-up. She admits to taking her medications as prescribed without adverse reactions. She notes that she has been making healthy dietary choices, including low-sodiu m. She notes that she checks her blood pressure at home weekly and usually between 120-120/70-75 She offers no complaints and denies acute symptoms at this time. 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 occupational exposures/hazards: No Cognitive needs: No Hearing needs: No Vision needs: No Questionnaire Thrive Questionnaire Date Thrive assessed: 05/02/24 I am a: Patient What is your living situation today?: I have a steady place to live Within the past 12 months, did the food you bought not last and you didn't have the money to get more?: Never true Within the past 12 months, did you worry whether your food would run out before you got money to buy more?: Never true Do you have trouble paying for medicines?: No Do you have trouble getting transportation to medical appointments?: No Do you have trouble paying your heating and electricity bill?: No Do you have trouble taking care of your child, family member or friend?: No Do you have trouble with day-to-day activities such as bathing, preparing meals, shopping, managing finances, etc.?: No Are you currently unemployed and looking for a job?: No Are you interested in more education?: No Please select the resources that you would like help with: None Currently or been in a relationship where the following occur: No concerns repo rted THRIVE Score: 0 TAMMY-7 AMB Questionnaire TAMMY-7 Date TAMMY - 7 assessed: 05/05/24 Source: Developed by Drs. Lamberto Kelly, Ramya Jaimes, Law Coleman and colleagues, with an educational salvador from [employer]. Review of Systems Const Details: Const Denies chills, Denies fatigue, Denies fever(s), Denies headache(s) and Denies weakness ENT Denies dizziness and Denies headache(s) Card Denies chest pain, Denies lightheadedness, Denies dyspnea and Denies other (Palpitations) Resp Denies cough, Denies dyspnea, Denies wheezing and Denies other ( shortness of breath) GI Denies abdominal pain, Denies melena, Denies hematochezia, Denies change in bowel habits, Denies dyspepsia and Denies nausea Denies hematuria and Denies dysuria Musc Denies abnormal gait, Denies myalgias, Denies arthralgias, Denies numbness and Denies tingling Skin/Breast Denies rash, Denies unusual bruising and Denies wounds Neuro Denies abnormal gait, Denies dizziness, Denies headache(s), Denies memory loss, Denies numbness, Denies Sensory deficit (Neuro), Denies tingling and Denies weakness Psych Denies anxiety, Denies depression, Denies memory loss Endo Denies cold intolerance, Denies fatigue, Denies heat intolerance, Denies polydipsia and Denies polyuria Aller/Immun Denies wheezing Physical exam (Primary Care) Vital Signs: Last Vital Signs Temp 99.5 F 11/09/24 09:55 Pulse 77 11/09/24 09:55 Resp 16 11/09/24 09:55 BP 117/70 11/09/24 09:55 Pulse Ox 97 11/09/24 09:55 Oxygen Delivery Method Room Air 11/09/24 09:55 BMI result Body Mass Index 32.7 Tobacco/Smoking Status: Tobacco use Status Tobacco use date assessed 11/09/24 11/09/24 09:57 Patient Tobacco Use Status Never used Tobacco 11/09/24 09:57 e-Cigarette/Vaping Use Never Used 11/09/24 09:57 Thrive Assessment: Date of Thrive Assessment Date Thrive assessed 05/02/24 11/09/24 09:57 Currently or been in a relationship where the following occur: No concerns reported Const Other: General: no acute distress and well developed Nutritional Appearance: well nourished Orientation/consciousness: patient oriented x3 HENMT Head: Yes normocephalic and Yes atraumatic Eyes General: appearance normal, both eyes and all related structures Pupils: Equal, round and reactive pupils present EOM: EOMs intact bilaterally Resp Effort & Inspection: normal respiratory effort Auscultation: clear to auscultation bilaterally Cardio Rate: regular rate Rhythm: regular rhythm Heart sounds: S1 normal heart sound present, S2 normal heart sound present, no gallops, no murmurs and no rubs GI Palpation (GI): No Abdominal aortic bruit present, Soft to palpation, nontender, No hepatosplenomegaly present and No Rebound tenderness present Auscultation: normal bowel sounds General: Yes no CVA tenderness Back/Spine/Pelvis Back: no CVA tenderness Cervical Spine: cervical ROM normal and No Cervical spine tenderness Thoracic/Lumbar Spine: thoraco-lumbar ROM normal, No pain with thoraco-lumbar ROM, No thoracic spinal tenderness and No lumbar spinal tenderness Extrem General: Yes normal to inspection, No edema and No calf tenderness Skin General: warm and dry. Normal skin color. Normal skin turgor Neuro General: patient oriented x3, gait normal and no focal neuro deficit Cranial nerves: Yes Equal, round and reactive pupils present Cognition (Neuro): normal cognition Gait exam (Neuro): Normal gait present Sensory Exam: No Sensory deficit (Neuro) Psych Appearance: grossly normal Affect: normal affect Attitude: cooperative Thought process: Normal thought process present Coding Level of Care Code Est Pt Level 3 (31830) Diagnoses Essential hypertension I10 Assessment & Plan Assessment & Plan (1) Essential hypertension: Code(s): I10 - Essential (primary) hypertension Category: Medical Plan: Blood pressure is 117/70, within goal of less than 140/90. She checks her blood pressure at home weekly and usually between 114-120/78-82. Continue current treatment regimen. Low-sodium diet encouraged. Follow-up in 3 months or sooner with blood pressure persistently above 140/90 with or without symptoms such as headache, visual disturbances, or dizziness. Verbalized understanding and agreed with the plan.
[2024-11-09 09:55] VITALS: BP 117/70; PULSE 77; RESP 16; TEMP 37.5; O2SAT 97; BMI 32.7
--- OUTSIDE RECORDS SUMMARY | 2024-11-09 10:41 | XMS_ITS | Encounter Summary ---
Author Organization [facility] Address [address] [place] [address] Care Team Providers Care Box Lidder Name Role Phone Tone Carrillo NP Primary Care Provider [phone] Encounter Details Date Type Department Care Team (Late st Contact Info) Description 04/30/2024 Scanned Document [address] [place] [phone] Provider, Generic Social History Tobacco Use [...] on filedocumented in this encounter Care Teams Box Lidder Relationship Specialty Start Date End Date Tone Carrillo NP [address] [place] [id number] PCP - General 05/16/23 documented as of this encounter
--- OUTSIDE RECORDS SUMMARY | 2024-11-09 10:41 | XMS_ITS ---
Author Name [facility] Organization Unknown History of Medication Use Medication Directions Dispensed Refills Start Date End Date Stat us cetirizine (ZyrTEC) 10 MG tablet Take 1 tablet (10 mg total) by mouth daily. 04/30/2024 active predniSONE (DELTASONE) 20 MG tablet Take 1 tablet (20 mg total) by mouth daily. Take in the morning with food. 04/30/2024 active proMETHAZINE-dextrome thorphan (proMETHAZINE-DM) 6.25-15 MG/5ML syrup Take 5 mL by mouth 4 times daily (every 6 hours) as needed for cough. 04/30/2024 active carbamide peroxide (DEBROX) 6.5 % otic solution Administer 5 drops into both ears 2 (two) times a day. 05/16/2023 05/21/2023 active guaiFENesin (MUCINEX) 600 MG 12 hr tablet Take 2 tablets (1,200 mg total) by mouth 2 (two) times a day as needed for congestion. 05/16/2023 active levothyroxine (SYNTHROID, LEVOTHROID) 112 MCG tablet Take 112 mcg by mouth daily. 04/15/2023 active SUMAtriptan (IMITREX) 100 MG tablet PLEASE SEE ATTACHED FOR DETAILED DIRECTIONS 03/25/2023 active losartan-hydroCHLOROt hiazide (HYZAAR) 100-25 MG per tablet Take 1 tablet by mouth daily. 02/13/2023 active Problems Problem Status Onset Date Problem Type Date of Resoluti on Source Flu-like symptoms active EncounterDiagnosisAct CCT Viral upper respiratory infection active EncounterDiagnosisAct CCT Encounters Encounter Type Encounter Reason Primary Diagnosis Location Date Ambulatory Cough Cough [facility] 04/30/2024 Ambulatory Chronic sinusitis, unspecified Chronic sinusitis, unspecified [facility] 05/16/2023 Care Team Organization Name Specialty Phone Email Start Date End Da te Jus [facility] 05/16/2023 06/09/2024 [facility] 05/16/2023 [facility] 05/16/2023
== END 2024-11-09 10:05 | disposition home or self-care (01) ==
LOC: HO.HMCFM 09:48
PROVIDERS: PCP Nurse Practitioner Family; Visit Provider Nurse Practitioner Family
DX: I10 Essential (primary) hypertension (principal)

== ENCOUNTER 2025-02-19 08:15 | Outpatient (AMB) | payer OTHER, SELFPAY ==
--- NOTE | 2025-02-19 08:23 | MHC.PC.OV ---
Vital Signs 02/19/25 08:27 Height 5 ft 3 in Weight 183 lb 6 oz BMI 32.5 BP 119/66 Blood Pressure Location Rt brachial Position Sitting Respiration 16 Pulse 87 Pulse Source Pulse Oximeter Temp 97.8 F Temp Source Oral Pulse Oximetry (%) 100 Oxygen Delivery Method Room Air Intake Visit Reasons: 3 mos HTN Intake Note: patient here for HTN follow up c/o having a sinus infection [employer] Required: No Is last menstrual period known: No Post menopausal: No Patient : No Allergies No Known Allergies Allergy (Verified 02/19/25 08:46) Medication List - Last Reconciled 02/19/25 by Tone Carrillo CNP amlodipine 2.5 mg PO DAILY 90 days fluticasone propionate 50 mcg/actuation 1 spray intranasal DAILY levothyroxine 112 mcg PO DAILY losartan-hydrochlorothiazide 100-25 mg 1 tab PO DAILY 90 days progesterone micronized 100 mg PO QAM sumatriptan succinate 100 mg PO Q2-4H PRN Tobacco use date assessed: 02/19/25 Dental Screening Dental Screen Date: 02/19/25 Did you have a dental visit in the last 12 months?: Yes Did you have a dental problem in the last 6 months where you did not have access to dental care?: No Was dental information given to patient?: Patient has dentist HPI HPI Comments History of Present Illness Details 54-year-old female presents for hypertension follow-up. She admits to taking her medications as prescribed without adverse reactions. She notes that she has been making healthy dietary choices, including low-sodium. She notes that she checks her blood pressure at home weekly and averages 115/75. She is recovering from a sinus infection. She has residual sinus congestion and bilateral ear pain. She was seen at an urgent care last week and was prescribed amoxicillin which she is currently on. 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: No Cognitive needs: No Hearing needs: No Vision needs: No Questionnaire Thrive Questionnaire Date Thrive assessed: 05/02/24 I am a: Patient What is your living situation today?: I have a steady place to live Within the past 12 months, did the food you bought not last and you didn't have the money to get more?: Never true Within the past 12 months, did you worry whether your food would run out before you got money to buy more?: Never true Do you have trouble paying for medicines?: No Do you have trouble getting transportation to medical appointments?: No Do you have trouble paying your heating and electricity bill?: No Do you have trouble taking care of your child, family member or friend?: No Do you have trouble with day-to-day activities such as bathing, preparing meals, shopping, managing finances, etc.?: No Are you currently unemployed and looking for a job?: No Are you interested in more education?: No Please select the resources that you would like help with: None Currently or been in a relationship where the following occur: No concerns reported THRIVE Score: 0 TAMMY-7 AMB Questionnaire TAMMY-7 Date TAMMY - 7 assessed: 05/05/24 Source: Developed by Drs. Lamberto Kelly, Ramya Jaimes, Law Coleman and colleagues, with an educational salvador from [employer]. Review of Systems Const Details: Const Denies chills, Denies fatigue, Denies fever(s), Denies headache(s) and Denies weakness ENT Reports as per HPI Card Denies chest pain, Denies lightheadedness, Denies dyspnea and Denies other (Palpitations) Resp Denies cough, Denies dyspnea, Denies wheezing and Denies other ( shortness of breath) GI Denies abdominal pain, Denies melena, Denies hematochezia, Denies change in bowel habits, Denies dyspepsia and Denies nausea Denies hematuria and Denies dysuria Musc Denies abnormal gait, Denies myalgias, Denies arthralgias, Denies numbness and Denies tingling Skin/Breast Denies rash, Denies unusual bruising and Denies wounds Neuro Denies abnormal gait, Denies dizziness, Denies headache(s), Denies memory loss, Denies numbness, Denies Sensory deficit (Neuro), Denies tingling and Denies weakness Psych Denies anxiety, Denies depression, Denies memory loss Endo Denies cold intolerance, Denies fatigue, Denies heat intolerance, Denies polydipsia and Denies polyuria Aller/Immun Denies wheezing Physical exam (Primary Care) Vital Signs: Last Vital Signs Temp 97.8 F 02/19/25 08:27 Pulse 87 02/19/25 08:27 Resp 16 02/19/25 08:27 BP 119/66 02/19/25 08:27 Pulse Ox 100 02/19/25 08:27 Oxygen Delivery Method Room Air 02/19/25 08:27 BMI result Body Mass Index 32.5 Tobacco/Smoking Status: Tobacco use Status Tobacco use date assessed 02/19/25 02/19/25 08:30 Patient Tobacco Use Status Never used Tobacco 02/19/25 08:25 e-Cigarette/Vaping Use Never Used 02/19/25 08:25 Thrive Assessment: Date of Thrive Assessment Date Thrive assessed 05/02/24 02/19/25 08:25 Currently or been in a relationship where the following occur: No concerns reported Const Other: General: no acute distress and well developed Nutritional Appearance: well nourished Orientation/consciousness: patient oriented x3 HENMT Head is normocephalic Bilateral ear canal and TM are normal Nasal turbinates and oropharynx are pink and moist Sinuses are nontender with palpation No auricular or cervical lymphadenopathy Eyes General: appearance normal, both eyes and all related structures Pupils: Equal, round and reactive pupils present EOM: EOMs intact bilaterally Resp Effort & Inspection: normal respiratory effort Auscultation: clear to auscultation bilaterally Cardio Rate: regular rate Rhythm: regular rhythm Heart sounds: S1 normal heart sound present, S2 normal heart sound present, no gallops, no murmurs and no rubs Extrem General: Yes normal to inspection, No edema and No calf tenderness Skin General: warm and dry. Normal skin color. Normal skin turgor Neuro General: patient oriented x3, gait normal and no focal neuro deficit Cranial nerves: Yes Equal, round and reactive pupils present Cognition (Neuro): normal cognition Gait exam (Neuro): Normal gait present Sensory Exam: No Sensory deficit (Neuro) Psych Appearance: grossly normal Affect: normal affect Attitude: cooperative Thought process: Normal thought process present Coding Level of Care Code Est Pt Level 4 (85546) Diagnoses Essential hypertension I10 Sinus infection J32.9 Assessment & Plan Assessment & Plan (1) Essential hypertension: Code(s): I10 - Essential (primary) hypertension Category: Medical Plan: Blood pressure today is 119/66, within goal of less than 140/90. Continue current treatment regimen. Low sodium diet encouraged. Follow up in 2-3 months to establish care with a new PCP within the practice to establish care. Return sooner with symptoms or concerns. Verbalized understanding and agreed with the plan. (2) Sinus infection: Code(s): J32.9 - Chronic sinusitis, unspecified Category: Medical Plan: She is recovering from a sinus infection. She has residual sinus congestion and bilateral ear pain. She was seen at an urgent care last week and was prescribed amoxicillin which she is currently on. Physical exam is benign. Continue current treatment regimen. Flonase refilled; advised to use as prescribed. Adequate hydration and rest encouraged. Follow-up with worsening or new symptoms. Verbalized understanding and agreed with the plan. Medications: New fluticasone propionate 50 mcg/actuation 1 spray intranasal DAILY 16 grams 1RF
[2025-02-19 08:27] VITALS: BP 119/66; PULSE 87; RESP 16; TEMP 36.6; O2SAT 100; BMI 32.5
== END 2025-02-19 09:01 | disposition home or self-care (01) ==
LOC: HO.HMCFM 08:16
PROVIDERS: PCP Nurse Practitioner Family; Visit Provider Nurse Practitioner Family
DX: I10 Essential (primary) hypertension (principal); J32.9 Chronic sinusitis, unspecified